=== PATIENT | female | born 1980 | race Caucasian/White ===

== ENCOUNTER 2020-07-26 15:51 | Outpatient (REF) | payer MEDICAID, SELFPAY ==
--- NOTE | ~2020-07-26 | US_ITS ---
EXAMINATION: US PELVIC AND TRANSVAGINAL CLINICAL INFORMATION: Excessive and frequent menses. COMPARISON: None TECHNIQUE: Both transabdominal and endovaginal scans were performed. FINDINGS: Anteverted anteflexed uterus present measuring 9.7 x 4.6 x 5.0 cm. The uterus appears normal. Endometrial thickness is 1.4 cm. The endometrium is slightly heterogeneous with one rounded 3.5 x 9.5 mm area seen. The right ovary measures 3.2 x 2.0 x 1.9 cm for a volume of 6.4 mL which includes a 1.2 x 0.9 x 1.8 cm cyst. The left ovary measures 2.7 x 1.8 x 1.7 cm for a volume of 4.3 mL and contains follicular cysts. A small amount of free fluid is present in the cul-de-sac. US/US pelvic and transvaginal IMPRESSION: 1. Normal-appearing exam aside from the presence of mild heterogeneity in the endometrium with question of a possible polypoid mass. If symptoms persist, hysterosonography may be of value. 2. Bilateral simple appearing ovarian cysts.
== END 2020-07-26 15:52 | disposition home or self-care (01) ==
LOC: HO.US 15:51
PROVIDERS: PCP Nurse Practitioner Primary Care; Visit Provider Advanced Practice Midwife
DX: N92.0 Excessive and frequent menstruation with regular cycle (principal)
CPT/HCPCS: 76830; 76856

== ENCOUNTER 2020-08-30 13:18 | Outpatient (REF) | payer MEDICAID, SELFPAY ==
[2020-08-31 09:20] LABS: CT PCR NOT DETECTED (Not Detect.); NG PCR NOT DETECTED (Not Detect.)
[2020-09-01 22:36] LABS: HPV mRNA E6/E7 rflx Not Detected (Not Detected)
== END 2020-08-30 13:19 | disposition home or self-care (01) ==
LOC: HO.LAB 13:18
PROVIDERS: Visit Provider Obstetrics & Gynecology
DX: Z01.419 Encounter for gynecological examination (general) (routine) without abnormal findings (principal); R93.5 Abnormal findings on diagnostic imaging of other abdominal regions, including retroperitoneum; N84.1 Polyp of cervix uteri; N92.1 Excessive and frequent menstruation with irregular cycle; Z87.891 Personal history of nicotine dependence
CPT/HCPCS: 87491; 87591; 87624; 88142; 99202

== ENCOUNTER 2020-09-09 07:39 | Day surgery (SDC) | payer MEDICAID, SELFPAY ==
[2020-08-31 17:30] LABS: Hematocrit 29.3 % (37-47); Hemoglobin 8.6 g/dl (12.0-16.0); Mean Corpuscular HGB Conc 29.4 g/dl (31.0-35.0); Mean Corpuscular Hemoglobin 20.3 pg (27.0-33.0); Mean Corpuscular Volume 69.1 fL (80-98); Mean Platelet Volume 10.2 fL (9.4-12.3); Platelet Count 352 X10*3/uL (160-400); Red Blood Count 4.24 X10*6/uL (4.20-5.50); Red Cell Distribution Width 15.9 % (11.0-16.0); White Blood Count 6.6 X10*3/uL (4.8-10.8)
[2020-08-31 18:08] LABS: HCG Quantitative < 2 mIU/mL
[2020-08-31 18:43] LABS: Free T4 (Free Thyroxine) 1.11 ng/dL (0.71-1.85)
[2020-09-02 13:57] VITALS: BMI 23.8
--- NOTE | 2020-09-08 08:34 | HO.ANESPROP2 ---
HPI - Anesthesia Eval Consult details Narrative: 39yo F for D&C Hysteroscopy, Poss Polypectomy, Poss Myomectomy PMFSH Active Problems Active Problems: All Active Problems (Updated 08/30/20 @ 13:51 by Cameron Causey MD) Menometrorrhagia (Acute) Endocervical polyp (Acute) Abnormal endometrial ultrasound (Acute) Past Medical History Medical History Thyroid cancer Family History Family History Paternal Aunt Thyroid ca Paternal Aunt Uterine cancer Surgical History Surgical History S/P removal of thyroid nodule Tubal ligation status Social History Social History Alcohol intake: never Patient Tobacco Use Status: Former Tobacco user Meds Allergies Allergy/AdvReac Type Severity Reaction Status Date / Time No Known Allergies Allergy Verified 08/30/20 13:35 Home Medications Medication Instructions Recorded Confirmed Last Taken Type levothyroxine [Euthyrox] 125 mcg PO DAILY 09/02/20 09/02/20 Unknown History Exam Exam Date and Time: September 08, 2020 0834 Height,Weight and Vital Signs: Height 4 ft 11 in Weight 53.524 kg Pertinent Lab Results Pertinent Lab Results: Laboratory Tests 08/31/20 08/31/20 16:55 16:55 WBC 6.6 RBC 4.24 Hgb 8.6 L Hct 29.3 L MCV 69.1 L MCH 20.3 L MCHC 29.4 L RDW 15.9 Plt Count 352 MPV 10.2 Absolute Nucleated RBC 0.000 Nucleated RBC % (auto) 0.0 TSH 0.20 L Free T4 1.11 Beta HCG, Quant < 2 Assessment and Plan Assessment Anesthesia Assessment: Chart Reviewed
[2020-09-09 07:55] LABS: UPreg QC Valid YES; Urine Pregnancy NEGATIVE (NEGATIVE)
[2020-09-09 07:57] VITALS: BP 124/45; PULSE 74; RESP 16; TEMP 36.4; O2SAT 99
[2020-09-09] MEDS: Lactated Ringers 1,000 ML 100 ML IVCONT (08:06)
--- NOTE | 2020-09-09 09:07 | MHC.SHP ---
Pre-Procedural Eval Section A Date of Service: 09/09/20 The patient is an INPATIENT: No Changes since office visit: No Cold of Flu in the past 2 weeks, No New Medical Problems, No Changes in Medication and No Patient answered all questions The History & Physical has been completed within 30 days and I have reviewed it.: Yes Section B Chief Complaint: polyp of cervix uteri Allergies: Allergies Allergy/AdvReac Type Severity Reaction Status Date / Time No Known Allergies Allergy Verified 08/30/20 13:35 Plan Diagnosis/Plan: Unchanged I have reviewed the history and physical and performed a pertinent physical examination on my patient. No changes have occurred unless specified.
--- NOTE | 2020-09-09 09:57 | P.BOP_ITS ---
Brief Operative Note Date of Service: 09/09/20 Pre-op diagnosis: Menometrorrhagia with endometrial polyp by ultrasound Post-op diagnosis: same (Same plus 1.5 to 2 cm endometrial polyp) Procedure: Hysteroscopy D&C, Polypectomy Surgeon: Cameron Causey MD Anesthesia: MAC Was an Protective Officer used for this Procedure?: No Estimated blood loss (mL): 0 Pathology: other (Endometrial Scrapping. Polyp) Condition: stable Disposition: PACU
--- NOTE | 2020-09-09 09:58 | P.OP_ITS ---
Operative Note Operative Note Date of Service: 09/09/20 Narrative: Preop Diagnosis: Menometrorrhagia and Endometrial polyp by US Operation: Diagnostic Hysteroscopy, Dilataion & Curettage and polypectomy Post Op Diagnosis: Same plus 1.5-2 cm Endometrial Polyp QBL: Minimal Anesthesia: MAC Surgeon: Cameron Causey MD Event Services Manager: None Complication: None Pathology: Endometrial Scrapings, Endometrial polyp Complication: None Pathology: Endometrial Scrapings, Endometrial polyp Procedure: The patient was put in the dorsal lithotomy position, scrubbed, and draped in the usual manner. A sterile speculum was inserted in the patient's vagina. The anterior lip of the cervix was grasped with a single tooth tenaculum. The cervix was dilated up to 5 mm, then the scope was inserted in the patient's uterus. Inspection revealed endometrial polyp. The Myosure Reach device was used; it was introduced through the operative channel and polypectomy done with no complications. This was followed by sharp curettings with moderate amount of tissue was retrieved. At the end of the procedure, all instruments were taken out of the patient uterine and vaginal cavity. The single tooth tenaculum was removed and homeostasis was assured using pressure,. The patient tolerated the procedure well and was transferred to the PACU in a stable condition.
[2020-09-09 10:00] VITALS: BP 123/62; PULSE 60; RESP 16; TEMP 36.3; O2SAT 100
[2020-09-09 10:05] VITALS: BP 117/60; PULSE 57; RESP 16; O2SAT 100
[2020-09-09 10:10] VITALS: BP 109/57; PULSE 59; RESP 18; O2SAT 98
[2020-09-09 10:15] VITALS: BP 108/55; PULSE 85; RESP 18; O2SAT 99
[2020-09-09 10:30] VITALS: BP 112/56; PULSE 56; RESP 18; TEMP 36.6; O2SAT 100
== END 2020-09-09 11:02 ==
LOC: HO.SSS 07:39
PROVIDERS: PCP Nurse Practitioner Primary Care; Visit Provider Obstetrics & Gynecology
PROC: 0UDB8ZZ Extraction of Endometrium, Via Natural or Artificial Opening Endoscopic (ICD-10-PCS; CPT 58558; principal; 2020-09-09 09:00)
DX: N84.0 Polyp of corpus uteri (principal); N92.1 Excessive and frequent menstruation with irregular cycle; Z98.51 Tubal ligation status; Z85.850 Personal history of malignant neoplasm of thyroid; Z87.891 Personal history of nicotine dependence
CPT/HCPCS: 58558; 36415; 81025; 84439; 84443; 84702; 85027; 88305; 88342; J1100; J1885; J2250; J2405; J3010

== ENCOUNTER 2020-10-11 08:11 | Outpatient (REF) | payer MEDICAID, SELFPAY ==
[2020-10-14 19:16] LABS: HPV mRNA E6/E7 rflx Not Detected (Not Detected)
== END 2020-10-11 08:12 | disposition home or self-care (01) ==
LOC: CF 08:11
PROVIDERS: PCP Nurse Practitioner Primary Care; Visit Provider Obstetrics & Gynecology
DX: R87.615 Unsatisfactory cytologic smear of cervix (principal); N92.1 Excessive and frequent menstruation with irregular cycle; R94.6 Abnormal results of thyroid function studies; Z11.51 Encounter for screening for human papillomavirus (HPV)
CPT/HCPCS: 87624; 88142; 99212

== ENCOUNTER 2020-10-26 15:47 | Outpatient (REF) | payer MEDICAID, SELFPAY ==
--- NOTE | ~2020-10-26 | MM_ITS ---
EXAMINATION: MM SCREENING DIGITAL BREAST TOMOSYNTHESIS, BILATERAL CLINICAL INFORMATION: Screening. Asymptomatic. Prior [id number] mammography currently unavailable. Age 39. Family history breast cancer, paternal aunt. The lifetime risk of breast cancer based on the Tyrer-Cuzick Model is 11%. COMPARISON: None. TECHNIQUE: Digital breast tomosynthesis is performed in both the craniocaudal and mediolateral oblique views along with computer-aided detection (CAD). Synthesized 2D images are generated from the tomosynthesis. FINDINGS: The breasts are heterogeneously dense, which may obscure small masses (ACR BI-RADS breast composition Category c). There are no significant masses, abnormal calcifications, or other abnormalities. There is small intramammary node posterior upper outer right breast. The axilla and skin contours are unremarkable. MM/MM tomosynthesis screening BI IMPRESSION: No mammographic evidence of malignancy. ASSESSMENT: BI-RADS 1: Negative RECOMMENDATION: 1. Routine annual mammography screening. 2. Radiology department staff will attempt to retrieve prior [id number] mammography to allow for comparison in an addendum report. This patient's information was entered into a reminder system with a target due date for their next mammogram.
== END 2020-10-26 15:48 | disposition home or self-care (01) ==
LOC: HO.MAMMO 15:47
PROVIDERS: Visit Provider Obstetrics & Gynecology
DX: Z12.31 Encounter for screening mammogram for malignant neoplasm of breast (principal)
CPT/HCPCS: 77063; 77067

== ENCOUNTER → 2020-11-23 14:16 | Outpatient (BNVA) | payer MEDICAID, SELFPAY | PROVIDERS: PCP Nurse Practitioner Primary Care; Visit Provider Obstetrics & Gynecology | DX: Z30.433 Encounter for removal and reinsertion of intrauterine contraceptive device (principal) | CPT/HCPCS: 58300 ==

== ENCOUNTER → 2020-12-21 15:55 | Outpatient (BNVA) | payer MEDICAID, SELFPAY | PROVIDERS: PCP Nurse Practitioner Primary Care; Visit Provider Obstetrics & Gynecology | DX: Z30.432 Encounter for removal of intrauterine contraceptive device (principal); D64.9 Anemia, unspecified; N92.1 Excessive and frequent menstruation with irregular cycle | CPT/HCPCS: 58301; 81025; 99212 ==

== ENCOUNTER 2021-08-31 14:10 | Outpatient (REF) | payer MEDICAID, SELFPAY ==
[2021-09-04 21:12] LABS: HPV mRNA E6/E7 rflx Not Detected (Not Detected)
== END 2021-08-31 14:11 | disposition home or self-care (01) ==
LOC: HO.LAB 14:10
PROVIDERS: Visit Provider Obstetrics & Gynecology
DX: Z01.419 Encounter for gynecological examination (general) (routine) without abnormal findings (principal)
CPT/HCPCS: 87624; 88142

== ENCOUNTER 2021-09-18 06:38 | Outpatient (REF) | payer MEDICAID, SELFPAY ==
[2021-09-18 08:06] LABS: COVID-19 Test Positive (Negative); IDNOW Serial# 16C4AD1C
== END 2021-09-18 06:39 | disposition home or self-care (01) ==
LOC: HO.LAB 06:38
PROVIDERS: Visit Provider Internal Medicine
DX: Z20.822 Contact with and (suspected) exposure to COVID-19 (principal)
CPT/HCPCS: 87635; C9803

== ENCOUNTER 2021-10-27 15:56 | Outpatient (REF) | payer MEDICAID, SELFPAY ==
--- NOTE | ~2021-10-27 | MM_ITS ---
EXAMINATION: MM SCREENING DIGITAL BREAST TOMOSYNTHESIS, BILATERAL CLINICAL INFORMATION: Screening. Asymptomatic. The lifetime risk of breast cancer based on the Tyrer-Cuzick Model is 11%. COMPARISON: Mammography: 10/26/2020; outside exam 02/15/2016 ([facility], [place], [place]). TECHNIQUE: Digital breast tomosynthesis is performed in both the craniocaudal and mediolateral oblique views along with computer-aided detection (CAD). Synthesized 2D images are generated from the tomosynthesis. FINDINGS: The breasts are heterogeneously dense, which may obscure small masses (ACR BI-RADS breast composition Category c). There are no significant masses, abnormal calcifications, or other abnormalities. Parenchymal pattern is similar to prior studies. There is no developing density or architectural abnormality. The axilla and skin contours are unremarkable. No significant changes. MM/MM tomosynthesis screening BI IMPRESSION: No mammographic evidence of malignancy. ASSESSMENT: BI-RADS 1: Negative RECOMMENDATION: Routine annual mammography screening. This patient's information was entered into a reminder system with a target due date for their next mammogram.
== END 2021-10-27 15:57 | disposition home or self-care (01) ==
LOC: HO.MAMMO 15:56
PROVIDERS: Visit Provider Obstetrics & Gynecology
DX: Z12.31 Encounter for screening mammogram for malignant neoplasm of breast (principal)
CPT/HCPCS: 77063; 77067

== ENCOUNTER 2022-09-04 14:28 | Outpatient (AMB) | payer MEDICAID, SELFPAY ==
[2022-09-04 14:29] VITALS: BP 116/68; BMI 25.9
--- NOTE | 2022-09-04 14:29 | MHC.OFFVIS ---
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 No complaints. Last Pap/HPV was negative in 09/08, this was preceded by ascus/HPV negative in 09/07 Last Mammogram was BI-RADS 1 in 11/09 [facility] Medical History Thyroid cancer Surgical History S/P removal of thyroid nodule Tubal ligation status Family History Paternal Aunt Thyroid ca Paternal Aunt Uterine cancer Paternal Aunt Breast cancer Social History Household Members: Spouse and Children Housing: House Are you a primary intensive care nurse to a significant other at home: No Do you presently have visiting nurse or other home services: No Alcohol intake: never Patient Tobacco Use Status: Former Tobacco user service: No Current occupational status: employed Female Reproductive History Menstrual Age of Menarche: 10 Date of last menstrual period: 08/17/22 Total pregnancies: 2 Number of Living Children: 2 Date of last pap smear: 08/31/21 (wnl) History of abnormal pap smear: Yes (2020 ASCUS) Review of Systems Const All systems reviewed & are unremarkable except as noted in HPI and below Card Reports as per HPI Resp Reports as per HPI GI Reports as per HPI and Reports no additional complaints Reports as per HPI Physical Exam Vital Signs: Last Vital Signs BP 116/68 09/04/22 14:29 BMI result Body Mass Index 25.9 Const General: cooperative, healthy appearing and comfortable Chest Chest palpation & inspection: normal inspection of the chest and normal palpation of entire chest wall Breast/axilla inspection: normal inspection of the breasts and normal inspection of the axillae Breast/axilla palpation: normal palpation of the breasts, normal palpation of the axillae and no axillary lymphadenopathy Resp Effort & Inspection: normal respiratory effort Auscultation: clear to auscultation bilaterally Percussion: percussion normal Cardio Palpation: normal PMI Rate: regular rate Rhythm: regular rhythm Heart sounds: no murmurs and no rubs Peripheral pulses: Peripheral pulses 2+ throughout GI Inspection: Yes normal to inspection Palpation (GI): Soft to palpation, nontender, no guarding, not rigid and No hepatosplenomegaly present Percussion: Yes normal to percussion Auscultation: normal bowel sounds Rectal Exam - Female: deferred General: Yes bladder normal to palpation External Female Exam: No lesion Speculum Exam - Vagina: normal appearance of the vagina, normal palpation, normal vaginal discharge and not erythematous Speculum Exam - Cervix: normal appearance of the cervix and normal palpation Bimanual exam- vagina & uterus: normal bimanual exam, normal palpation, uterine size normal, bladder normal to palpation, consistency normal and normal palpation Bimanual Exam- Adnexa, other: normal adnexae, no masses and no tenderness Assessment & Plan Assessment & Plan (1) Well woman exam: Comment: ASCUS HPV negative in 10/08 Negative co testing in 09/08 Code(s): Z01.419 - Encounter for gynecological examination (general) (routine) without abnormal findings Plan: Cotesting not indicated this year, instructions given the patient to schedule her next screening Mammogram in 11/10. Counseled the patient about the recommended dietary allowance of 1000 mg of Calcium & 600 IU of vitamin D. The patient was instructed to perform monthly self-breast exams and to schedule an annual exam in a year; All questions answered and the patient verbalized understanding. Instructed the patient to schedule annual exam in a year Orders: Orders MM screening mammo BI Today Z12.31 - Encounter for screening mammogram for malignant neoplasm of breast Coding Level of Care Code Est Pt Prev Care 40-64y(38026) Diagnoses Well woman exam Z01.419
== END 2022-09-04 15:03 | disposition home or self-care (01) ==
LOC: HO.HWS 14:28
PROVIDERS: PCP Nurse Practitioner Primary Care; Visit Provider Obstetrics & Gynecology
DX: Z01.419 Encounter for gynecological examination (general) (routine) without abnormal findings (principal)
CPT/HCPCS: 99396

== ENCOUNTER → 2022-09-04 14:28 | Outpatient (BNVA) | payer MEDICAID, SELFPAY | PROVIDERS: PCP Nurse Practitioner Primary Care; Visit Provider Obstetrics & Gynecology ==

== ENCOUNTER 2022-11-05 15:52 | Outpatient (REF) | payer OTHER, SELFPAY | END 2022-11-05 15:53 | disposition home or self-care (01) | LOC: HO.MAMMO 15:52 | PROVIDERS: Visit Provider Nurse Practitioner Primary Care | DX: Z12.31 Encounter for screening mammogram for malignant neoplasm of breast (principal) | CPT/HCPCS: 77063; 77067 ==

== ENCOUNTER → 2022-11-05 16:00 | Outpatient (BNV) | payer OTHER, SELFPAY | PROVIDERS: Visit Provider Radiology Diagnostic Radiology | DX: Z12.31 Encounter for screening mammogram for malignant neoplasm of breast (principal) | CPT/HCPCS: 77063; 77067 ==

== ENCOUNTER 2023-09-17 08:38 | Outpatient (AMB) | payer OTHER, SELFPAY ==
--- NOTE | 2023-09-17 08:39 | A.OFFVIS_ITS ---
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 Complaining of heavy menstrual cycles associated with passage of blood clots and pelvic cramping Last Pap/HPV was negative in 09/08, this was preceded by ascus/HPV negative in 10/08 Last Mammogram was BI-RADS 1 in 11/10 [facility] Medical History ASCUS of cervix with negative high risk HPV Thyroid cancer Surgical History Tubal ligation status S/P removal of thyroid nodule Family History Paternal Aunt Thyroid ca Paternal Aunt Uterine cancer Paternal Aunt Breast cancer Social History Household Members: Spouse and Children Housing: House Are you a primary resident care manager rn to a significant other at home: No Do you presently have visiting nurse or other home services: No Alcohol intake: never Patient Tobacco Use Status: Former Tobacco user service: No Current occupational status: employed Current occupation: [employer] Sexual orientation: Straight/Heterosexual Gender identity: Female Female Reproductive History Menstrual Age of Menarche: 10 Date of last menstrual period: 08/21/23 control method: permanent sterilization Total pregnancies: 2 Full term: 2 Number of Living Children: 2 Date of last pap smear: 09/01/21 Date of Mammogram: 11/05/22 Review of Systems Const All systems reviewed & are unremarkable except as noted in HPI and below Card Reports as per HPI Resp Reports as per HPI GI Reports as per HPI and Reports no additional complaints Reports as per HPI Physical Exam Vital Signs: BMI result Body Mass Index 25.4 Const General: cooperative, healthy appearing and comfortable Chest Chest palpation & inspection: normal inspection of the chest and normal palpation of entire chest wall Breast/axilla inspection: normal inspection of the breasts and normal inspection of the axillae Breast/axilla palpation: normal palpation of the breasts, normal palpation of the axillae and no axillary lymphadenopathy Resp Effort & Inspection: normal respiratory effort Auscultation: clear to auscultation bilaterally Percussion: percussion normal Cardio Palpation: normal PMI Rate: regular rate Rhythm: regular rhythm Heart sounds: no murmurs and no rubs Peripheral pulses: Peripheral pulses 2+ throughout GI Inspection: Yes normal to inspection Palpation (GI): Soft to palpation, nontender, no guarding, not rigid and No hepatosplenomegaly present Percussion: Yes normal to percussion Auscultation: normal bowel sounds Rectal Exam - Female: deferred General: Yes bladder normal to palpation External Female Exam: No lesion Speculum Exam - Vagina: normal appearance of the vagina, normal palpation, normal vaginal discharge and not erythematous Speculum Exam - Cervix: normal appearance of the cervix and normal palpation Bimanual exam- vagina & uterus: normal bimanual exam, normal palpation, uterine size normal, bladder normal to palpation, consistency normal and normal palpation Bimanual Exam- Adnexa, other: normal adnexae, no masses and no tenderness Assessment & Plan Assessment & Plan (1) Well woman exam: Comment: ASCUS HPV negative in 10/08 Negative co testing in 09/08 Code(s): Z01.419 - Encounter for gynecological examination (general) (routine) without abnormal findings Category: Medical Plan: Cotesting done. Instructions given the patient to schedule next screening Mammogram in 11/11. Counseled the patient about the recommended dietary allowance of 1000 mg of Calcium & 600 IU of vitamin D. The patient was instructed to perform monthly self-breast exams and to schedule an annual exam in a year; All questions answered and the patient verbalized understanding. Instructed the patient to schedule annual exam in a year (2) Abnormal uterine bleeding (AUB): Code(s): N93.9 - Abnormal uterine and vaginal bleeding, unspecified Category: Medical Plan: Co testing done, GC and chlamydia taken CBC, TSH, prolactin, HCG, and pelvic ultrasound ordered. Discussed with the patient the different causes of abnormal bleeding including thyroid disorders, uterine and ovarian pathology, endometrial hyperplasia, carcinoma and other potential causes. Discussed with the patient the work up including CBC (to r/o anemia), TSH, prolactin, pelvic Ultrasound, endometrial biopsy to r/o endometrial pathology. All questions answered and the patient verbalized understanding. Instructed the patient to schedule an appointment for an endometrial biopsy in 2 weeks. Orders: Orders Complete Blood Count no Diff Today N93.9 - Abnormal uterine and vaginal bleeding, unspecified TSH reflex Free T4 Today N93.9 - Abnormal uterine and vaginal bleeding, unspecified Prolactin Today N93.9 - Abnormal uterine and vaginal bleeding, unspecified US pelvic and transvaginal Today N93.9 - Abnormal uterine and vaginal bleeding, unspecified HCG Quantitative Today N93.9 - Abnormal uterine and vaginal bleeding, unspecified Coding Level of Care Code Est Pt Prev Care 40-64y(58564) Diagnoses Well woman exam Z01.419 Abnormal uterine bleeding (AUB) N93.9
[2023-09-17 08:42] VITALS: BP 106/60; BMI 25.4
== END 2023-09-17 08:58 | disposition home or self-care (01) ==
LOC: HO.HWS 08:38
PROVIDERS: PCP Internal Medicine; Visit Provider Obstetrics & Gynecology
DX: Z01.419 Encounter for gynecological examination (general) (routine) without abnormal findings (principal); N93.9 Abnormal uterine and vaginal bleeding, unspecified
CPT/HCPCS: 99396

== ENCOUNTER 2023-09-17 08:38 | Outpatient (REF) | payer OTHER, SELFPAY ==
[2023-09-17 09:59] LABS: Hematocrit 36.4 % (37.0-47.0); Mean Corpuscular Hemoglobin 26.2 pg (27.0-33.0); Mean Corpuscular Volume 79.5 fL (80.0-98.0); Mean Platelet Volume 10.2 fL (9.4-12.3); Platelet Count 333 X10*3/uL (160-400); Red Blood Count 4.58 X10*6/uL (4.20-5.50); Red Cell Distribution Width 13.2 % (11.0-16.0); White Blood Count 6.7 X10*3/uL (4.8-10.8)
[2023-09-17 10:57] LABS: HCG Quantitative < 2 mIU/mL; TSH reflex Free T4 0.24 uIU/mL (0.32-4.0)
[2023-09-17 17:13] LABS: CT PCR NOT DETECTED (Not Detect.); NG PCR NOT DETECTED (Not Detect.)
[2023-09-18 08:13] LABS: Prolactin 23.2 ng/mL
[2023-09-20 15:33] LABS: HPV mRNA E6/E7 Not Detected (Not Detected)
== END 2023-09-17 08:39 | disposition home or self-care (01) ==
LOC: HO.LAB 08:38
PROVIDERS: PCP Internal Medicine; Visit Provider Obstetrics & Gynecology
DX: Z01.419 Encounter for gynecological examination (general) (routine) without abnormal findings (principal); Z11.51 Encounter for screening for human papillomavirus (HPV); N93.9 Abnormal uterine and vaginal bleeding, unspecified; Z85.850 Personal history of malignant neoplasm of thyroid
CPT/HCPCS: 36415; 84146; 84439; 84443; 84702; 85027; 87491; 87591; 87624; 88175

== ENCOUNTER 2023-09-17 09:00 | Outpatient (REF) | payer OTHER, SELFPAY | END 2023-09-17 09:01 | disposition home or self-care (01) | LOC: HO.LNP 09:00 | PROVIDERS: Visit Provider Obstetrics & Gynecology | DX: Z13.89 Encounter for screening for other disorder (principal) ==

== ENCOUNTER 2023-09-20 16:06 | Outpatient (REF) | payer OTHER, SELFPAY ==
--- NOTE | ~2023-09-20 | US_ITS ---
EXAMINATION: US PELVIS CLINICAL INFORMATION: Abnormal uterine and vaginal bleeding, last menstrual period 09/17/2023, no pain. COMPARISON: July 26, 2020 TECHNIQUE: Ultrasound of the pelvis is performed using both transabdominal and transvaginal transducers along with Doppler. Transvaginal imaging is performed due to inadequate visualization transabdominally. FINDINGS: The uterus is anteverted and measures 10.5 x 3.9 x 5.3 cm. 2.7 x 1.9 x 2.0 cm heterogeneous lesion with echogenic foci characteristic of calcifications characteristic of a fibroid located towards the lower uterine segment was not appreciated on the prior exam. Double wall endometrial thickness is 6 mm. No significant free fluid. A 0.3 cm echogenic focus within the endometrium may possibly represent an endometrial polyp. Right ovary measures 2.7 x 1.0 x 1.3 cm, volume 1.4 mL. Echogenic foci within the right ovary are characteristic of small calcifications. Right adnexal tubular structure may represent a hydrosalpinx. Left ovary seen only on transabdominal ultrasound images, limiting evaluation, and measures 3.8 x 1.8 x 2.8 cm, volume 10.0 mL. Echogenic foci within the left ovary are characteristic of small calcifications. Left ovarian 2.1 cm cyst is difficult to fully characterize due to the limited visualization. Nabothian cysts. US/US pelvic and transvaginal IMPRESSION: 1. A 2.7 cm heterogeneous lesion with echogenic foci characteristic of calcifications characteristic of a fibroid located towards the lower uterine segment was not appreciated on the prior exam. 2. A 0.3 cm echogenic focus within the endometrium may possibly represent an endometrial polyp. 3. Right adnexal anechoic tubular structure may represent a hydrosalpinx. 4. Left ovarian 2.1 cm cyst is difficult to fully characterize due to the limited visualization. Management of Adnexal Lesions (newly detected incidentally on US in asymptomatic* non females) Cyst Size Reproductive Age Female * < 3 cm: No follow-up. Normal physiology. At your discretion, may not need to be described in the report. * > 3 to 5 cm: No follow-up. Describe in report and include ?almost certainly benign?. * > 5 to 7 cm: Yearly follow-up. Describe in report and include ?almost certainly benign?. * > 7 cm: Further evaluation with MR or surgery should be considered since these may be difficult to assess completely with US. Cyst Size Postmenopausal Female * < 1 cm: No follow-up. Clinically inconsequential. At your discretion, may not need to be described in the report. * > 1 to 7 cm: Describe and include ?almost certainly benign? and recommend yearly follow-up, * at least initially, with US. * > 7 cm: Further imaging with MR or surgery. Length of follow-up: No consensus was reached regarding how long a lesion must be followed to demonstrate its stability. Cystic ovarian neoplasms generally grow very slowly. These recommendations may be helpful in symptomatic women as well, but the clinical setting will often determine management in a manner beyond the scope of these recommendations. Reference: Becca et. al. Management of Asymptomatic Ovarian and Other Adnexal Cysts Imaged at US, Society of Radiologists in Ultrasound Consensus Statement, Ultrasound Quarterly 2010;26:121-131.
== END 2023-09-20 16:07 | disposition home or self-care (01) ==
LOC: HO.US 16:06
PROVIDERS: PCP Internal Medicine; Visit Provider Obstetrics & Gynecology
DX: N93.9 Abnormal uterine and vaginal bleeding, unspecified (principal)
CPT/HCPCS: 76830; 76856

== ENCOUNTER 2023-10-02 08:28 | Outpatient (AMB) | payer OTHER, SELFPAY ==
--- NOTE | 2023-10-02 08:34 | A.OFFVIS_ITS ---
Vital Signs 10/02/23 08:35 Height 4 ft 11 in Weight 125 lb 10.616 oz BMI 25.4 BP 108/62 Intake Visit Reasons: pre op Sustainability Director Required: Yes Sustainability Director Language: Cyber Engineer Services: Sustainability Director Present (in person) Sustainability Director Name: Dayana SANTIAGO Information Interpreted: non-clinical & clinical Hydraulic Assembler: Hydraulic Assembler Present Accompanied by: Self / Same As Patient Allergies No Known Allergies Allergy (Verified 09/17/23 08:43) Is last menstrual period known: Yes Last menstrual period: 12/17/19 Post menopausal: No Patient : No Do you need a note to return to daycare/school/sports/work: Yes (for surgery on saturday) HPI Comments Details: Presenting for pelvic ultrasound follow-up. Pelvic ultrasound done recently showed the following: The uterus is anteverted and measures 10.5 x 3.9 x 5.3 cm. 2.7 x 1.9 x 2.0 cm heterogeneous lesion with echogenic foci characteristic of calcifications characteristic of a fibroid located towards the lower uterine segment was not appreciated on the prior exam. Double wall endometrial thickness is 6 mm. No significant free fluid. A 0.3 cm echogenic focus within the endometrium may possibly represent an endometrial polyp. Right ovary measures 2.7 x 1.0 x 1.3 cm, volume 1.4 mL. Echogenic foci within the right ovary are characteristic of small calcifications. Right adnexal tubular structure may represent a hydrosalpinx. Left ovary seen only on transabdominal ultrasound images, limiting evaluation, and measures 3.8 x 1.8 x 2.8 cm, volume 10.0 mL. Echogenic foci within the left ovary are characteristic of small calcifications. Left ovarian 2.1 cm cyst is difficult to fully characterize due to the limited visualization. Nabothian cysts. [facility] Medical History ASCUS of cervix with negative high risk HPV Thyroid cancer Surgical History Tubal ligation status S/P removal of thyroid nodule Family History Paternal Aunt Thyroid ca Paternal Aunt Uterine cancer Paternal Aunt Breast cancer Social History Household Members: Spouse and Children Housing: House Are you a primary care program director to a significant other at home: No Do you presently have visiting nurse or other home services: No Alcohol intake: never Patient Tobacco Use Status: Former Tobacco user service: No Current occupational status: employed Current occupation: [employer] Sexual orientation: Straight/Heterosexual Gender identity: Female Female Reproductive History Menstrual Age of Menarche: 10 Date of last menstrual period: 12/17/19 Total pregnancies: 2 Full term: 2 Review of Systems Card Reports as per HPI and Reports no additional complaints Resp Reports as per HPI and Reports no additional complaints GI Reports as per HPI and Reports no additional complaints Reports as per HPI Physical Exam Vital Signs: BMI result Body Mass Index 25.4 Const General: cooperative, healthy appearing and comfortable Resp Effort & Inspection: normal respiratory effort Auscultation: clear to auscultation bilaterally Percussion: percussion normal Cardio Palpation: normal PMI Rate: regular rate Rhythm: regular rhythm Heart sounds: no murmurs and no rubs Peripheral pulses: Peripheral pulses 2+ throughout GI Inspection: Yes normal to inspection Palpation (GI): Soft to palpation, nontender, no guarding, not rigid and No hepatosplenomegaly present Percussion: Yes normal to percussion Auscultation: normal bowel sounds Rectal Exam - Female: deferred Assessment & Plan Assessment & Plan (1) Ovarian cyst: Comment: Suboptimally visualized by ultrasound and bilateral ovarian calcification Code(s): N83.209 - Unspecified ovarian cyst, unspecified side Category: Medical Plan: Discussed with the patient the finding on ultrasound showing bilateral ovarian calcification and suboptimal villi ovarian cyst, recommended MRI for further assessment (2) Uterine myoma: Code(s): D25.9 - Leiomyoma of uterus, unspecified Category: Medical Plan: Discussed with the patient the results of ultrasound showing calcification of the uterine myoma in the lower uterine segment will request MRI of the pelvis for further evaluation of the myoma in order to rule out any suspicious features (3) Abnormal endometrial ultrasound: Code(s): R93.5 - Abnormal findings on diagnostic imaging of other abdominal regions, including retroperitoneum Category: Medical Plan: Discussed with the patient the results of the ultrasound showing 0.3 cm possible endometrial polyp. Recommended hysteroscopy D&C possible polypectomy/myomectomy. Discussed with the patient the procedure , all benefits and risks including but not limited to inability to complete the procedure , insufficient endometrial tissue for a complete evaluation of the endometrial c avity , bleeding, infection, possible need for blood transfusion with all its risk ( HIV,syphilis, Hepatitis, anaphylaxis shock, others..), injury to bladder, rectum, possible need for laparoscopy/laparotomy or hysterectomy. The patient verbalized understanding and signed the consent. 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 Instructions given the patient to schedule the MRI and a follow-up appointment. All questions answered, the patient verbalized understanding Orders: Orders MR pelvis wo/w con Today D25.9 - Leiomyoma of uterus, unspecified, N70.11 - Chronic salpingitis, N83.209 - Unspecified ovarian cyst, unspecified side Coding Level of Care Code Est Pt Level 3 (62466) Diagnoses Ovarian cyst N83.209 Uterine myoma D25.9 Abnormal endometrial ultrasound R93.5 Hydrosalpinx N70.11
[2023-10-02 08:35] VITALS: BP 108/62; BMI 25.4
== END 2023-10-02 10:11 | disposition home or self-care (01) ==
PROVIDERS: PCP Internal Medicine; Visit Provider Obstetrics & Gynecology
DX: N83.209 Unspecified ovarian cyst, unspecified side (principal); D25.9 Leiomyoma of uterus, unspecified; R93.5 Abnormal findings on diagnostic imaging of other abdominal regions, including retroperitoneum; N70.11 Chronic salpingitis
CPT/HCPCS: 99213

== ENCOUNTER → 2023-10-02 08:28 | Outpatient (BNVA) | payer OTHER, SELFPAY | PROVIDERS: PCP Internal Medicine; Visit Provider Obstetrics & Gynecology ==

== ENCOUNTER 2023-10-04 07:23 | Day surgery (SDC) | payer OTHER, SELFPAY ==
--- NOTE | 2023-10-03 08:37 | P.CONAN_ITS ---
Documented by User: Deanna Ashby NP 10/03/23 08:37 HPI - Anesthesia Eval Consult details Narrative: 42yo F for D&C Hysteroscopy,possible myomectomy,possible polypectomy, PMFSH Active Problems Active Problems: All Active Problems Hydrosalpinx (Acute) Uterine myoma (Acute) Ovarian cyst (Acute) Abnormal uterine bleeding (AUB) (Acute) Microcytic anemia (Acute) Well woman exam (Acute) Anemia (Acute) Encounter for IUD removal (Acute) Remove/insert IUD (Acute) Unsatisfactory cervical Papanicolaou smear (Acute) Abnormal TSH (Acute) Menometrorrhagia (Acute) Endocervical polyp (Acute) Abnormal endometrial ultrasound (Acute) Past Medical History Medical History ASCUS of cervix with negative high risk HPV Thyroid cancer Family History Family History Paternal Aunt Thyroid ca Paternal Aunt Uterine cancer Paternal Aunt Breast cancer Surgical History Surgical History Tubal ligation status S/P removal of thyroid nodule Social History Social History Household Members: Spouse and Children Housing: House Are you a primary healthcare administration intern to a significant other at home: No Do you presently have visiting nurse or other home services: No Alcohol intake: never Patient Tobacco Use Status: Former Tobacco user service: No Current occupational status: employed Current occupation: [employer] Sexual orientation: Straight/Heterosexual Gender identity: Female Meds Allergies Allergy/AdvReac Type Severity Reaction Status Date / Time naproxen AdvReac Palpitation Verified 10/04/23 09:08 s Home Medications ?Medication ?Instructions ?Recorded ?Confirmed ?Last Taken ?Type levothyroxine 125 mcg tablet 125 mcg PO DAILY 09/02/20 07/03/22 Unknown History (Euthyrox) cholecalciferol (vitamin D3) 125 125 mcg PO DAILY 07/03/22 07/03/22 Unknown History mcg (5,000 unit) tablet (Vitamin D3) magnesium 100 mg capsule 100 mg PO DAILY 07/03/22 07/03/22 Unknown History omega-3 fatty acids 1,000 mg PO DAILY 07/03/22 07/03/22 Unknown History Assessment and Plan Assessment Anesthesia Assessment: Chart Reviewed Documented by User: Jana Fleming MD 10/04/23 09:21 [facility] Past Medical History Medical History ASCUS of cervix with negative high risk HPV Thyroid cancer Family History Family History Paternal Aunt Thyroid ca Paternal Aunt Uterine cancer Paternal Aunt Breast cancer Surgical History Surgical History Tubal ligation status S/P removal of thyroid nodule History of Problems with Anesthesia: No Social History Social History Household Members: Spouse and Children Housing: House Are you a primary healthcare administration intern to a significant other at home: No Do you presently have visiting nurse or other home services: No Alcohol intake: never Patient Tobacco Use Status: Former Tobacco user service: No Current occupational status: employed Current occupation: [employer] Sexual orientation: Straight/Heterosexual Gender identity: Female Meds Allergies Allergy/AdvReac Type Severity Reaction Status Date / Time naproxen AdvReac Palpitation Verified 10/04/23 09:08 s Home Medications ?Medication ?Instructions ?Recorded ?Confirmed ?Last Taken ?Type levothyroxine 125 mcg tablet 125 mcg PO DAILY 09/02/20 07/03/22 Unknown History (Euthyrox) cholecalciferol (vitamin D3) 125 125 mcg PO DAILY 07/03/22 07/03/22 Unknown History mcg (5,000 unit) tablet (Vitamin D3) magnesium 100 mg capsule 100 mg PO DAILY 07/03/22 07/03/22 Unknown History omega-3 fatty acids 1,000 mg PO DAILY 07/03/22 07/03/22 Unknown History Exam Airway Mallampati Class: II TM Dist: >3cm Neck ROM: Full Loose/Missing/Broken Teeth: No Heart: RRR Lungs: CTA Assessment and Plan Assessment Anesthesia Assessment: Anesthesia Plan Discussed Final Anesthetic Review History of Problems with Anesthesia: No NPO: Yes ASA Class: II Final Preanesthetic Review: Meds/Allgs Chart Reviewed, Consent Obtained/Reviewed and Anes Risks/Benef Reviewed Patient Risk: Low Procedure Risk: Low Anesthetic Plan Anesthetic Plan: GA Disposition: Standard PACU
[2023-10-04 08:15] LABS: UPreg QC Valid YES; Urine Pregnancy NEGATIVE (NEGATIVE)
--- NOTE | 2023-10-04 08:49 | MHC.SHP ---
Pre-Procedural Eval Section A - 24 Hr Update-Section A only Date of Service: 10/04/23 Section B - Complete if H&P > 30 days Chief Complaint: Unspecified ovarian cyst, unspecified side Allergies: Allergies Allergy/AdvReac Type Severity Reaction Status Date / Time No Known Allergies Allergy Verified 09/17/23 08:43 Plan I have reviewed the history and physical and performed a pertinent physical examination on my patient. No changes have occurred unless specified. Time Spent With Patient Time: Total time managing care of this patient today ____ minutes.
[2023-10-04 08:50] VITALS: BMI 25.2
[2023-10-04 09:05] VITALS: BP 111/57; PULSE 62; RESP 16; TEMP 36.2; O2SAT 98
[2023-10-04] MEDS: Lactated Ringers 1,000 ML 100 ML IVCONT (09:18)
[2023-10-04 09:19] VITALS: BMI 25.2
--- NOTE | 2023-10-04 10:52 | P.OP_ITS ---
Operative Note Operative Note Date of Service: 10/04/23 Narrative: Preop Diagnosis: Abnormal uterine bleeding, abnormal endometrial by ultrasound Operation: Diagnostic Hysteroscopy, Dilataion & Curettage and polypectomy Post Op Diagnosis: Endometrial Polyp QBL: Minimal Anesthesia: GLMA Surgeon: Cameron Causey MD Fire Protection Inspector: None Complication: None Pathology: Endometrial Scrapings, Endometrial polyp Procedure: The patient was put in the dorsal lithotomy position, scrubbed, and draped in the usual manner. A sterile speculum was inserted in the patient's vagina. The anterior lip of the cervix was grasped with a single tooth tenaculum. The cervix was dilated up to 5 mm, then the scope was inserted in the patient's uterus. Inspection revealed endometrial polyp. The Myosure Reach device was used; it was introduced through the operative channel and polypectomy done with no complications. The scope was then taken out from the uterine cavity, sharp curettings was carried on with minimal to moderate amount of tissues retrieved. At the end of the procedure, all instruments were taken out of the patient uterine and vaginal cavity. The single tooth tenaculum was removed and homeostasis was assured using pressure,. The patient tolerated the procedure well and was transferred to the PACU in a stable condition.
--- NOTE | 2023-10-04 10:52 | PM.OP ---
Brief Operative Note Date of Service: 10/04/23 Pre-op diagnosis: Abnormal uterine bleeding, abnormal endometrium by ultrasound Post-op diagnosis: same (Endometrial polyp) Procedure: Hysteroscopy D&C, Polypectomy Surgeon: Cameron Causey MD Anesthesia: GLMA Was an Associate Product Integrity Engineer used for this Procedure?: No Estimated blood loss (mL): 0 Pathology: other (Endometrial Scrapping. Polyp) Condition: stable Disposition: PACU
[2023-10-04 10:55] VITALS: BP 112/70; PULSE 64; RESP 20; TEMP 36.1; O2SAT 100
[2023-10-04 11:00] VITALS: BP 114/66; PULSE 58; RESP 16; O2SAT 100
[2023-10-04 11:05] VITALS: BP 118/68; PULSE 56; RESP 16; O2SAT 100
[2023-10-04 11:10] VITALS: BP 117/64; PULSE 59; RESP 16; O2SAT 99
[2023-10-04 11:25] VITALS: BP 123/60; PULSE 63; RESP 18; TEMP 36.1; O2SAT 100
== END 2023-10-04 12:05 | disposition home or self-care (01) ==
PROVIDERS: PCP Internal Medicine; Visit Provider Obstetrics & Gynecology
PROC: 0UDB8ZZ Extraction of Endometrium, Via Natural or Artificial Opening Endoscopic (ICD-10-PCS; CPT 58558; principal; 2023-10-04 10:30)
DX: N93.9 Abnormal uterine and vaginal bleeding, unspecified (principal); R93.5 Abnormal findings on diagnostic imaging of other abdominal regions, including retroperitoneum; N84.0 Polyp of corpus uteri
CPT/HCPCS: 58558; 81025; 88305; J1100; J1885; J2250; J2405; J2704; J3010

== ENCOUNTER → 2023-10-04 07:23 | Outpatient (BNV) | payer OTHER, SELFPAY | PROVIDERS: PCP Internal Medicine; Visit Provider Obstetrics & Gynecology | DX: N93.9 Abnormal uterine and vaginal bleeding, unspecified (principal); N84.0 Polyp of corpus uteri | CPT/HCPCS: 58558 ==

== ENCOUNTER 2023-10-31 08:03 | Outpatient (REF) | payer OTHER, SELFPAY ==
[2023-10-31 15:32] LABS: CT PCR NOT DETECTED (Not Detect.); NG PCR NOT DETECTED (Not Detect.)
== END 2023-10-31 08:04 | disposition home or self-care (01) ==
LOC: HO.LNP 08:03
PROVIDERS: PCP Nurse Practitioner Primary Care; Visit Provider Obstetrics & Gynecology
DX: R10.2 Pelvic and perineal pain (principal); Z32.02 Encounter for pregnancy test, result negative
CPT/HCPCS: 81002; 81025; 87491; 87591

== ENCOUNTER 2023-10-31 08:03 | Outpatient (AMB) | payer OTHER, SELFPAY ==
--- NOTE | 2023-10-31 08:14 | MHC.OFFVIS ---
Vital Signs 10/31/23 08:15 Height 4 ft 11 in Weight 128 lb BMI 25.9 Intake Visit Reasons: post op/ MRI results Furnace Packer Required: Yes Furnace Packer Language: Electrical Plumbing Supervisor Services: Furnace Packer Present (in person) Furnace Packer Name: Dayana SANTIAGO Information Interpreted: non-clinical & clinical Talend Developer: Talend Developer Present (Dayana SANTIAGO) Accompanied by: Self / Same As Patient Allergies naproxen Adverse Reaction (Verified 10/31/23 08:15) Palpitations HPI Comments Details: The patient is presenting post hysteroscopy D&C with minimal vaginal bleeding no feverishness chills or abdominal pain. The patient is complaining of pelvic pain radiating to her right flank over the last 3 days no fever or chills no nausea or vomiting no urinary symptoms no vaginal discharge. 10/03 Hysteroscopy showed was within normal except for a small polyp was excised and the D&C was performed The pathology showed the following: A. Endometrium, polyp, biopsy: Mid-secretory endometrium; negative for atypia, hyperplasia or malignancy. B. Endometrium, curettage: Fragments of mid-secretory endometrium; negative for atypia, hyperplasia or malignancy 09/30 pelvic ultrasound showed the following: IMPRESSION: 1. A 2.7 cm heterogeneous lesion with echogenic foci characteristic of calcifications characteristic of a fibroid located towards the lower uterine segment was not appreciated on the prior exam. 2. A 0.3 cm echogenic focus within the endometrium may possibly represent an endometrial polyp. 3. Right adnexal anechoic tubular structure may represent a hydrosalpinx. 4. Left ovarian 2.1 cm cyst is difficult to fully characterize due to the limited visualization. 10/21 Pelvic MRI showed bilateral normal ovaries no evidence of myoma and endometrial polyp measuring 2.9 x 1.6 cm The following workup for AUB was done: H&H= .4 prolactin, hCG, GC and chlamydia were negative. TSH was low, free T4 within normal Co testing was done in 09/08 was negative. Mammogram 11/10 was BI-RADS 1, another screening mammogram scheduled on 11/12/2023 Repeat ultrasound done today, no official report available, unofficial reading showed normal endometrium measuring 0.8 cm with no evidence of polyp, lower uterine segment myoma measuring 2 x 1.8 x 1.9 cm previously measuring 2.7 x 1.9 x 2 cm bilateral normal ovaries with no ovarian cysts PFSH Medical History ASCUS of cervix with negative high risk HPV Thyroid cancer Surgical History Tubal ligation status S/P removal of thyroid nodule Family History Paternal Aunt Thyroid ca Paternal Aunt Uterine cancer Paternal Aunt Breast cancer Social History Household Members: Spouse and Children Housing: House Are you a primary child care assistant to a significant other at home: No Do you presently have visiting nurse or other home services: No Alcohol intake: never Patient Tobacco Use Status: Former Tobacco user service: No Current occupational status: employed Current occupation: [employer] Sexual orientation: Straight/Heterosexual Gender identity: Female Female Reproductive History Menstrual Age of Menarche: 10 Review of Systems Const All systems reviewed & are unremarkable except as noted in HPI and below Reports as per HPI and Reports no additional complaints GI Reports no additional complaints Reports no additional complaints Physical Exam Vital Signs: BMI result Body Mass Index 25.9 GI Palpation (GI): Tenderness to palpation present (GI) (mild ) and no guarding General: Yes no CVA tenderness External Female Exam: normal external appearance and normal appearance of the urethra Speculum Exam - Vagina: normal appearance of the vagina, normal palpation, no lesions and no masses Speculum Exam - Cervix: normal appearance of the cervix, normal palpation, no lesions, no masses and nontender Bimanual exam- vagina & uterus: normal bimanual exam, normal palpation, uterine size normal, normal palpation, uterine shape normal, No Cervical tenderness present and Uterine tenderness Bimanual Exam- Adnexa, other: normal adnexae and tender (Bilateral) Back/Spine/Pelvis Back: no CVA tenderness Results AMB Test Urine AMB Test Urine Negative Last Edit by Dayana Arthur CMA on 10/31/23 08:36 AMB Urinalysis Dipstick UR Leukocytes Negative Last Edit by Dayana Arthur CMA on 10/31/23 08:37 UR Nitrite Negative Last Edit by Dayana Arthur CMA on 10/31/23 08:37 UR Urobilinogen Normal Last Edit by Dayana Arthur CMA on 10/31/23 08:37 UR Protein Negative Last Edit by Dayana Arthur CMA on 10/31/23 08:37 UR Ph 7.0 Last Edit by Dayana Arthur, ASPHALT MACHINE OPERATOR on 10/31/23 08:37 UR Blood Negative Last Edit by Dayana Arthur, ASPHALT MACHINE OPERATOR on 10/31/23 08:37 UR Specific [place] 1.005 Last Edit by Dayana Arthur, HAM on 10/31/23 08:37 UR Ketone Negative Last Edit by Dayana Arthur, ASPHALT MACHINE OPERATOR on 10/31/23 08:37 UR Bilirubin Negative Last Edit by Dayana Arthur, ASPHALT MACHINE OPERATOR on 10/31/23 08:37 UR Glucose Negative Last Edit by Dayana Arthur CMA on 10/31/23 08:37 Results Reviewed Results Reviewed: Laboratory Last Values Urine pH (Clinic) 7.0 10/31/23 08:35 Specific [place] (Clinic) 1.005 10/31/23 08:35 Ur Protein (Clinic) Negative 10/31/23 08:35 Ur Ketones (Clinic) Negative 10/31/23 08:35 Urine Blood (Clinic) Negative 10/31/23 08:35 Urine Nitrite Negative 10/31/23 08:35 Urine Bilirubin (Clinic) Negative 10/31/23 08:35 Urobilinogen (Clinic) Normal 10/31/23 08:35 Leukocyte Esterase (Clinic) Negative 10/31/23 08:35 Urine Glucose (Clinic) Negative 10/31/23 08:35 Tst Clinic Negative 10/31/23 08:35 Assessment & Plan Assessment & Plan (1) Uterine myoma: Code(s): D25.9 - Leiomyoma of uterus, unspecified Category: Medical Plan: Discussed with the patient the discrepancy between the previous pelvic ultrasound , pelvic MRI and intraoperative hysteroscopic findings. Because of this discrepancy between the finding on pelvic ultrasound and pelvic MRI and intraoperative finding during hysteroscopy , repeat ultrasound was done today, no official report available but unofficial findings showed no evidence of endometrial polyp . There is a lower uterine segment myoma measuring 2 x 1.9 x 1.8 cm previously measuring 2.7 x 1.9 x 2 cm. Discussed with the patient the findings on pelvic ultrasound & the risk of myosarcoma; discussed with the patient the options of treatment including expectant management versus hysterectomy; the pros and cons, risks benefits of each approach were discussed with the patient including the fact that in cases of myosarcoma, surgical treatment can lead to early diagnosis and positively affects the prognosis; after further discussion, the patient decided to proceed with expectant management. Will repeat pelvic ultrasound periodically. Instructions given to patient to call in case any of the following occurs: pressure symptoms, abnormal uterine bleeding, pelvic pain; and to schedule a 12-months pelvic ultrasound and a follow-up appointment . All questions answered, the patient verbalized understanding and agreed with the plan . (2) Pelvic pain: Comment: Sided dating to the flap Code(s): R10.2 - Pelvic and perineal pain Category: Medical Plan: Urine dip and test done in the office were negative. Pelvic ultrasound done today showed no pathology except for the myoma, will send the patient to emergency room to rule out other pathology including kidney stone, appendicitis if the workup is negative recommended treatment for endometritis with ceftriaxone 500 mg IM and doxycycline 100 mg p.o. b.i.d. with Flagyl 500 mg p.o. b.i.d. for 14 days (3) Abnormal uterine bleeding (AUB): Code(s): N93.9 - Abnormal uterine and vaginal bleeding, unspecified Category: Medical Plan: Discussed with the patient the results of the work up done and options of treatment including Lysteda, BCP's, Mirena IUD, endometrial ablation and hysterectomy. All pros, cons, risks and benefits if each option was discussed with the patient and the patient decided to think about it and get back to us. All questions answered the patient verbalized understanding. (4) Ovarian cyst: Comment: Suboptimally visualized by ultrasound and bilateral ovarian calcification Code(s): N83.209 - Unspecified ovarian cyst, unspecified side Category: Medical Plan: Explained to the patient the finding on MRI and today's pelvic ultrasound showing bilateral normal ovaries, the patient was reassured (5) Abnormal TSH: Code(s): R79.89 - Other specified abnormal findings of blood chemistry Category: Medical Plan: Discussed with the patient the low TSH with normal free T4, recommended the patient to contact her primary care physician for further management Orders: Orders AMB HCG Urine Test Today Z32.02 - Encounter for test, result negative CT NG by PCR Today R10.2 - Pelvic and perineal pain US pelvic and transvaginal Today D25.9 - Leiomyoma of uterus, unspecified, R10.2 - Pelvic and perineal pain US pelvic and transvaginal Today R10.2 - Pelvic and perineal pain AMB Urinalysis Dipstick Today Z32.02 - Encounter for test, result negative Coding Level of Care Code Est Pt Level 3 (35223) Diagnoses Uterine myoma D25.9 Pelvic pain R10.2 Abnormal uterine bleeding (AUB) N93.9 Ovarian cyst N83.209 Abnormal TSH R79.89
[2023-10-31 08:15] VITALS: BMI 25.9
== END 2023-10-31 12:54 | disposition home or self-care (01) ==
LOC: HO.HWS 08:03
PROVIDERS: PCP Nurse Practitioner Primary Care; Visit Provider Obstetrics & Gynecology
DX: D25.9 Leiomyoma of uterus, unspecified (principal); R10.2 Pelvic and perineal pain; N93.9 Abnormal uterine and vaginal bleeding, unspecified; N83.209 Unspecified ovarian cyst, unspecified side; R79.89 Other specified abnormal findings of blood chemistry; Z32.02 Encounter for pregnancy test, result negative
CPT/HCPCS: 99213

== ENCOUNTER 2023-10-31 08:47 | Outpatient (REF) | payer OTHER, SELFPAY ==
--- NOTE | ~2023-10-31 | US_ITS ---
EXAMINATION: US PELVIS CLINICAL INFORMATION: Pelvic and perineal pain. LMP unknown. COMPARISON: September 20, 2023 TECHNIQUE: Ultrasound of the pelvis is performed using both transabdominal and transvaginal transducers along with Doppler. Transvaginal imaging is performed due to inadequate visualization transabdominally. FINDINGS: Uterus: The uterus is anteverted and measures 8.1 x 3.9 x 6.0 cm. Uterine echotexture is heterogeneous. The double wall endometrial thickness is 0.8 mm. Possible lower uterine segment/cervical fibroid measures 2.0 x 1.9 x 1.8 cm. Adnexa: Both ovaries are visualized. There is normal color flow to the adnexa. There is small pelvic ascites. Right ovary measures 3.0 x 1.8 x 2.4 cm. Left ovary measures 2.0 x 1.8 x 1.9 cm. US/US pelvic and transvaginal IMPRESSION: Possible lower uterine segment/cervical fibroid. Consider follow-up imaging with MRI pelvis as clinically indicated. Electronically signed by: Alberto Rodriguez MD 10/31/2023 12:57 PM EDT
== END 2023-10-31 08:48 | disposition home or self-care (01) ==
LOC: HO.US 08:47
PROVIDERS: PCP Nurse Practitioner Primary Care; Visit Provider Obstetrics & Gynecology
DX: R10.2 Pelvic and perineal pain (principal); D25.9 Leiomyoma of uterus, unspecified
CPT/HCPCS: 76830; 76856

== ENCOUNTER 2023-10-31 10:37 | Emergency (ER) | payer OTHER, SELFPAY ==
--- NOTE | ~2023-10-31 | CT_ITS ---
EXAMINATION: CT ABDOMEN AND PELVIS WITH CONTRAST CLINICAL INFORMATION: Right lower quadrant tenderness. COMPARISON: None available. TECHNIQUE: Multidetector volumetric images were obtained from the superior aspect of the liver through the pubic symphysis following administration 85 mL of Omnipaque 350 intravenous contrast. Sagittal and coronal reformatted images were obtained on the technologist's workstation. Oral contrast: No This CT examination was performed using dose optimization techniques as appropriate, variously including the following: *Automated exposure control *Adjustment of mA and/or kV according to patient size (this includes techniques or standardized protocols for targeted exams where dose is matched to indication/reason for exam; i.e. extremities or head) *Use of iterative reconstruction technique DLP: 377 mGy-cm FINDINGS: LUNG BASES: The visualized lung bases are unremarkable. LIVER, GALLBLADDER, AND BILIARY TREE: The liver is normal in size, shape, and attenuation. No focal hepatic lesion or biliary ductal dilatation is present. The gallbladder is unremarkable with no evidence of radiopaque gallstones, gallbladder wall thickening, or obvious pericholecystic inflammatory changes. PANCREAS: Unremarkable. SPLEEN: Unremarkable. ADRENAL GLANDS: Unremarkable. KIDNEYS AND URETERS: The kidneys are normal in size, shape, and attenuation. No hydronephrosis, hydroureter, or calculi seen. No perinephric stranding. BLADDER: Unremarkable. GASTROINTESTINAL TRACT: The small and large bowel are unremarkable. The appendix is unremarkable. ABDOMINAL WALL: There is a very small fat-containing umbilical hernia. LYMPH NODES: Normal. VASCULAR: Unremarkable. PELVIC VISCERA: The uterus is unremarkable. A 1.9 cm right ovarian simple follicle is seen, for which no imaging follow-up is recommended. Bilateral tubal ligation clips are noted. There is a small amount of nonspecific free fluid in the cul-de-sac. OSSEOUS STRUCTURES: Unremarkable. CT/CT abdomen pelvis w IV con IMPRESSION: 1. A 1.9 cm right ovarian simple follicle is seen, which requires no imaging follow-up. 2. There is a small amount of free fluid in the cul-de-sac. 3. There is a very small fat-containing umbilical hernia. Fleischner guidelines were followed. Electronically signed by: Guevara Mitchell MD 10/31/2023 08:45 PM EDT
[2023-10-31 11:06] VITALS: BP 141/38; PULSE 82; RESP 20; TEMP 36.2; O2SAT 100; BMI 24.5
--- NOTE | 2023-10-31 11:11 | ED.GENADULT ---
HPI - General Adult General Chief complaint: Abdominal Pain Stated complaint: Lower abd pain R side Time Seen by Provider: 10/31/23 16:06 Source: patient and other Mode of arrival: ambulatory Limitations: no limitations History of Present Illness ED Provider: [facility] narrative: Patient is a 42-year-old female with history of thyroid CA, ASCUS of cervix with high risk HPV, s/p hysteroscopy D&C, uterine myoma presenting from Dr. Causey's office with complaint of right lower quadrant abdominal tenderness, radiating to back for the past 3 days. Denies fevers. Joe nausea/vomiting/diarrhea. Denies dysuria, hematuria, urgency or other urinary symptoms. Denies abnormal vaginal discharge. Dr. Causey sent patient to rule out appendicitis, ureteral calculi. Patient states pain this morning was 6/10, states pain is currently 4/10. Took some ibuprofen this morning with mild relief. complaint: RLQ abdominal pain Onset (ago): day(s) Location: abdomen Radiation: back Quality: aching Pain Consistency: constant Relieving factors: rest Exacerbating factors: movement and other (palpation) Associated symptoms: denies other symptoms Treatments prior to arrival: NSAID Related Data Home Medications ?Medication ?Instructions ?Recorded ?Confirmed levothyroxine 125 mcg tablet 125 mcg PO DAILY 09/02/20 10/04/23 (Euthyrox) cholecalciferol (vitamin D3) 125 125 mcg PO DAILY 07/03/22 07/03/22 mcg (5,000 unit) tablet (Vitamin D3) magnesium 100 mg capsule 100 mg PO DAILY 07/03/22 07/03/22 omega-3 fatty acids 1,000 mg PO DAILY 07/03/22 07/03/22 Allergies Allergy/AdvReac Type Severity Reaction Status Date / Time naproxen AdvReac Palpitation Verified 10/31/23 11:09 s Review of Systems Review of Systems: As per HPI. Yes all other systems are reviewed and are negative Constitutional: Constitutional: Reports as per HPI [facility] Past Medical History Medical History ASCUS of cervix with negative high risk HPV Thyroid cancer Surgical History Tubal ligation status S/P removal of thyroid nodule Family History Family History Paternal Aunt Thyroid ca Paternal Aunt Uterine cancer Paternal Aunt Breast cancer Social History Social History Household Members: Spouse and Children Housing: House Are you a primary daycare assistant to a significant other at home: No Do you presently have visiting nurse or other home services: No Alcohol intake: never Patient Tobacco Use Status: Former Tobacco user Advance Directives: No Advance Directives Information Provided: Yes Do you have a plan to hurt others: No Plan service: No Current occupational status: employed Current occupation: [employer] Sexual orientation: Straight/Heterosexual Gender identity: Female Physical Exam ED Vital Signs: Vital Signs - 24 hr 10/31/23 11:06 10/31/23 17:16 10/31/23 20:59 Temperature 97.1 F 98.5 F 98.2 F Pulse Rate 82 60 74 Respiratory Rate 20 20 20 Blood Pressure 141/38 H 106/64 124/53 L Pulse Oximetry 100 100 98 Oxygen Delivery Method Room Air Room Air Room Air 10/31/23 21:45 Temperature 98.2 F Pulse Rate 74 Respiratory Rate 20 Blood Pressure 124/53 L Pulse Oximetry 98 Oxygen Delivery Method Room Air BMI result Body Mass Index 24.5 Vital signs have been reviewed and appear to be correct. Blood pressure normal. Heart rate normal. Respiratory rate normal. Temperature normal. Oxygen saturation normal. Const General: cooperative, healthy appearing and no acute distress Orientation/consciousness: oriented to person, oriented to place, oriented to time and patient oriented x3 Limitations: no limitations HENMT Head: Yes normocephalic and Yes atraumatic Ears: external ears normal General nose exam: Normal external nose present Face and sinus: Yes face symmetric Mouth: oropharynx normal and moist mucous membranes Throat: Yes uvula midline Eyes Pupils: Equal, round and reactive pupils present Neck Neck: Yes normal visual inspection and Yes supple Resp Effort & Inspection: normal respiratory effort and able to speak in complete sentences Auscultation: clear to auscultation bilaterally Cardio Rate: regular rate Rhythm: regular rhythm Heart sounds: S1 normal heart sound present and S2 normal heart sound present GI Palpation (GI): Soft to palpation, Tenderness to palpation present (GI) in the RLQ, no guarding and No Rebound tenderness present Auscultation: normoactive bowel sounds General: Yes no CVA tenderness Back/Spine/Pelvis Back: no CVA tenderness Skin General skin exam: elasticity normal and turgor normal Neuro General: oriented to person, oriented to place, oriented to time, patient oriented x3, moves all extremities, no focal motor deficits and CN's II-XI intact bilaterally Cranial nerves: Yes Equal, round and reactive pupils present Cognition (Neuro): normal cognition Extrem General: Yes full ROM, Yes no pedal edema and Yes no calf tenderness Psych Mental Status: mental status grossly normal Affect: normal affect Thought process: Normal thought process present Course Course Course Narrative: RME: Done by ROCKY Jane. 42-year-old female sent by Dr. Causey for evaluation for right lower quadrant tenderness for the past 3 days. Patient denies any nausea vomiting, dysuria or hematuria. Patient denies any trauma. Patient was evaluated by Dr. Causey at the office who states she is positive for CMT and right adnexal tenderness. Patient states he did an ultrasound which he states was not concerning. Dr. Causey states it does no other infection caused of right lower quadrant pain patient should be treated as endometritis with metronidazole, doxy, ceftriaxone. Physical exam positive for right liquid tenderness on palpation. Negative for any CVA tenderness. Reevaluation(s) Reevaluation #1: Patient received in sign-out pending CT imaging to evaluate for pathology. The patient's CT scan shows a 1.9 cm right ovarian cyst. This does explain the patient's pain and her location is in the right lower abdomen. She has no central pelvic pain or left-sided abdominal pain. I feel that endometritis is less likely at this time. I did discuss possible treatment for endometritis the patient also does not feel that she would like to take antibiotics. She has no fever, no vaginal discharge. She will follow-up with OBGYN regarding her ovarian cyst. She was given return precautions, especially if she develops a fever Time: 21:17 Medications Administered Discontinued Medications Generic Name Dose Route Start Last Admin Trade Name Freq PRN Reason Stop Dose Admin Iohexol 85 ml 10/31/23 17:44 10/31/23 17:44 Iohexol 350 Mg/Ml 100 Ml Infus..Btl IV 10/31/23 17:45 85 ml ONCE ONE Administration Medical Decision Making Medical Decision Making [facility] Narrative: Patient is a 42-year-old female with history of thyroid CA, ASCUS of cervix with high risk HPV, s/p hysteroscopy D&C, uterine myoma presenting from Dr. Causey's office with complaint of right lower quadrant abdominal tenderness, radiating to back for the past 3 days. On exam patient is awake, A+Ox3, VS WNL, afebrile, normal neurological exam without focal deficits, physical exam findings as above. Given reported symptoms and physical exam findings, initial differential includes appendicits, renal/ureteral calculi, UTI. Labs unremarkable. Urinalysis is without evidence of infection. Patient signed out to ROCKY Manning pending CT results. He is aware of Dr. Causey's plan to treat for endometritis if CT is negative. Differential Diagnosis Differential Diagnoses: The differential diagnosis associated with the presentation includes As per [facility]. Admission/Observation Consideration of admission/observation: Escalation of care including admission/observation considered Patient would have been admitted to the hospital had their work up had any findings where hospital admission was appropriate and their clinical presentation warranted hospital admission. Lab Data [facility] Lab Attestation statement: I reviewed the patient's lab results. As per [facility] 10/31/23 11:40 10/31/23 11:40 Labs: Lab Results 10/31/23 Range/Units 11:40 WBC 7.2 (4.8-10.8) X10*3/uL RBC 4.73 (4.20-5.50) X10*6/uL Hgb 12.2 (12.0-16.0) g/dl Hct 37.2 (37.0-47.0) % MCV 78.6 L (80.0-98.0) fL MCH 25.8 L (27.0-33.0) pg MCHC 32.8 (31.0-35.0) g/dl RDW 13.4 (11.0-16.0) % Plt Count 353 (160-400) X10*3/uL MPV 9.9 (9.4-12.3) fL Immature Gran % (Auto) 0.4 (0.0-0.4) % Neut % (Auto) 62.9 (45-73) % Lymph % (Auto) 26.8 (20-40) % [place] % (Auto) 6.7 (2-11) % Eos % (Auto) 2.6 (0-4) % Baso % (Auto) 0.6 (0-2) % Lymph # (Auto) 1.9 (1.2-4.9) X10*3/uL Aurora # (Auto) 0.5 (0.1-1.2) X10*3/uL Eos # (Auto) 0.2 (0.0-0.4) X10*3/uL Baso # (Auto) 0.0 (0.0-0.2) X10*3/uL Abs Immat Gran (auto) 0.03 (0.00-0.03) X10*3/uL Absolute Neuts (auto) 4.5 (2.0-8.3) x10*3/uL Absolute Nucleated RBC 0.000 (0.0-0.012) X10*3/uL Nucleated RBC % (auto) 0.0 (0.0-0.2) /100WBC PT 11.8 (11.1-13.3) SEC INR 1.0 (0.9-1.1) APTT 31.8 (26.0-36.8) SEC Sodium 138 (135-145) mmol/L Potassium 4.3 (3.3-5.1) mmol/L Chloride 109 H (96-108) mmol/L Carbon Dioxide 22 (22-29) mmol/L Anion Gap 11 L (12-20) BUN 8 L (9-16) mg/dL Creatinine 0.74 (0.5-1.4) mg/dL Estim Creat Clear Calc 73.4 Estimated GFR > 60 Random Glucose 110 (60-115) mg/dL Calcium 9.0 (8.4-10.2) mg/dL Total Bilirubin 0.4 (0.0-1.0) mg/dL AST 18 (5-31) U/L ALT 14 (0-31) U/L Alkaline Phosphatase 83 (39-117) U/L Total Protein 7.4 (6.5-8.0) g/dL Albumin 4.3 (3.5-5.0) g/dL Beta HCG, Quant < 2 mIU/mL Urine Color Yellow Urine Appearance Clear Urine pH 6.0 (5.0-9.0) Ur Specific [place] <= 1.005 (1.005-1.025) Urine Protein Negative (Neg-Trace) mg/dL Urine Glucose (UA) Negative (Negative) mg/dL Urine Ketones Negative (Negative) mg/dL Urine Blood Negative (Negative) Urine Nitrite Negative (Negative) Ur Leukocyte Esterase Negative (Negative) Urine Test NEGATIVE (NEGATIVE) External Record Review External record reviewed: Inpatient record, Office record and Outpatient record Discharge Plan Discharge Clinical Impression: Ovarian cyst Patient Disposition: Home, Self-Care Instructions: Ovarian Cyst (ED) Additional Instructions: Your CT scan shows a 1.9 cm ovarian cyst that is the likely cause of your pain. I do not feel that you have an infection at this time as you do not have a fever or a high white blood cell count or vaginal discharge If you develop a fever, you may return to the ER or follow up with Dr. Causey as at that point you would likely require antibiotics Return for new or worsening symptoms Prescriptions: No Action levothyroxine [Euthyrox] 125 mcg tablet 125 mcg PO DAILY magnesium 100 mg Capsule 100 mg PO DAILY Blakely 3 Capsule 1,000 mg PO DAILY cholecalciferol (vitamin D3) [Vitamin D3] 125 mcg (5,000 unit) Tablet 125 mcg PO DAILY Stand Alone Forms: Work/School Release Interventions: ED Discharge Assessment Last Done: 10/31/23 21:45 Discharge Date/Time: 10/31/23 21:46 Print Language: Welsh
[2023-10-31 11:45] LABS: MANUAL DIFF FLAG NO
[2023-10-31 11:47] LABS: Appearance Urine Clear; Color Urine Yellow; Glucose Urine UA Negative (Negative); Leukocyte Esterase Urine Negative (Negative); Nitrite Urine Negative (Negative); Specific Gravity - Urine <= 1.005 (1.005-1.025); Urine Blood Negative (Negative); Urine Ketones Negative (Negative); Urine Protein Negative (Neg-Trace)
[2023-10-31 11:49] LABS: Basophils Percent Auto 0.6 % (0-2); Eosinophils Absolute Auto 0.2 X10*3/uL (0.0-0.4); Eosinophils Percent Auto 2.6 % (0-4); Hematocrit 37.2 % (37.0-47.0); Hemoglobin 12.2 g/dl (12.0-16.0); Imm Gran Abs Auto 0.03 X10*3/uL (0.00-0.03); Imm Gran Pct Auto 0.4 % (0.0-0.4); Lymphocytes Absolute Auto 1.9 X10*3/uL (1.2-4.9); Lymphocytes Percent Auto 26.8 % (20-40); Mean Corpuscular HGB Conc 32.8 g/dl (31.0-35.0); Mean Corpuscular Hemoglobin 25.8 pg (27.0-33.0); Mean Corpuscular Volume 78.6 fL (80.0-98.0); Mean Platelet Volume 9.9 fL (9.4-12.3); Monocytes Absolute Auto 0.5 X10*3/uL (0.1-1.2); Monocytes Percent Auto 6.7 % (2-11); Neutrophils Absolute Auto 4.5 x10*3/uL (2.0-8.3); Neutrophils Percent Auto 62.9 % (45-73); Platelet Count 353 X10*3/uL (160-400); Red Blood Count 4.73 X10*6/uL (4.20-5.50); Red Cell Distribution Width 13.4 % (11.0-16.0); UPreg QC Valid YES; Urine Pregnancy NEGATIVE (NEGATIVE); White Blood Count 7.2 X10*3/uL (4.8-10.8)
[2023-10-31 11:57] LABS: Prothrombin Time 11.8 SEC (11.1-13.3)
[2023-10-31 12:00] LABS: Partial Thromboplastin Time 31.8 SEC (26.0-36.8)
[2023-10-31 12:11] LABS: Alanine Aminotransferase 14 U/L (0-31); Albumin Level 4.3 g/dL (3.5-5.0); Alkaline Phosphatase 83 U/L (39-117); Anion Gap 11 (12-20); Aspartate Amino Transferase 18 U/L (5-31); Bilirubin Total 0.4 mg/dL (0.0-1.0); Blood Urea Nitrogen 8 mg/dL (9-16); Carbon Dioxide 22 mmol/L (22-29); Chloride 109 mmol/L (96-108); Creatinine Clr Calc Pharmacy 73.4; Estimated Glomerular Filt Rate > 60; Glucose Random 110 mg/dL (60-115); Potassium 4.3 mmol/L (3.3-5.1); Sodium 138 mmol/L (135-145); Total Protein 7.4 g/dL (6.5-8.0)
[2023-10-31 12:16] LABS: HCG Quantitative < 2 mIU/mL
[2023-10-31 17:16] VITALS: BP 106/64; PULSE 60; RESP 20; TEMP 36.9; O2SAT 100
[2023-10-31] MEDS: iohexoL 350 MG/ML 100 ML INFUS..BTL 85 ML IV (17:44)
[2023-10-31 20:59] VITALS: BP 124/53; PULSE 74; RESP 20; TEMP 36.8; O2SAT 98
[2023-10-31 21:45] VITALS: BP 124/53; PULSE 74; RESP 20; TEMP 36.8; O2SAT 98
== END 2023-10-31 21:46 | disposition home or self-care (01) ==
PROVIDERS: Physician Assistant; Emergency Provider Internal Medicine; PCP Nurse Practitioner Primary Care
DX: N83.201 Unspecified ovarian cyst, right side (principal); R10.2 Pelvic and perineal pain; R10.31 Right lower quadrant pain; Z79.899 Other long term (current) drug therapy
CPT/HCPCS: 36415; 74177; 80053; 81003; 81025; 84702; 85025; 85610; 85730; 99283; 99284; Q9967

== ENCOUNTER → 2023-11-11 14:15 | Outpatient (BNV) | payer OTHER, SELFPAY | PROVIDERS: Absent Provider Obstetrics & Gynecology; PCP Nurse Practitioner Primary Care; Visit Provider Internal Medicine | DX: Z12.31 Encounter for screening mammogram for malignant neoplasm of breast (principal) | CPT/HCPCS: 77063; 77067 ==

== ENCOUNTER 2023-11-11 16:23 | Outpatient (REF) | payer OTHER, SELFPAY ==
--- NOTE | ~2023-11-11 | MM_ITS ---
EXAMINATION: MM SCREENING DIGITAL BREAST TOMOSYNTHESIS, BILATERAL CLINICAL INFORMATION: Screening. Asymptomatic. COMPARISON: Mammography: Comparison is made with available priors TECHNIQUE: Digital breast mammography with tomosynthesis is performed in both the craniocaudal and mediolateral oblique views along with computer-aided detection (CAD). FINDINGS: The breasts are heterogeneously dense, which may obscure small masses (ACR BI-RADS breast composition Category c). There are no significant masses, abnormal calcifications, or other abnormalities. MM/MM tomosynthesis screening BI IMPRESSION: No mammographic evidence of malignancy. ASSESSMENT: BI-RADS BI-RADS 1 - Negative RECOMMENDATION: Routine annual mammography screening. 1 year F/U This examination should not preclude the clinical evaluation of a suspicious palpable abnormality. This patient's information was entered into a reminder system with a target due date for their next mammogram. Electronically signed by: Letty Balderas DO 11/22/2023 10:47 AM EDT
== END 2023-11-11 16:24 | disposition home or self-care (01) ==
LOC: HO.MAMMO 16:23
PROVIDERS: Absent Provider Obstetrics & Gynecology; PCP Nurse Practitioner Primary Care; Visit Provider Nurse Practitioner Primary Care
DX: Z12.31 Encounter for screening mammogram for malignant neoplasm of breast (principal)
CPT/HCPCS: 77063; 77067

== ENCOUNTER 2024-09-22 08:34 | Outpatient (AMB) | payer SELFPAY ==
--- NOTE | 2024-09-22 08:43 | A.OFFVIS_ITS ---
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 No complaints. Last Pap/HPV was negative in 09/08, this was preceded by ascus/HPV negative in 09/07 Last Mammogram was BI-RADS 1 in 11/11 The previous screening colonoscopy [facility] Medical History ASCUS of cervix with negative high risk HPV Thyroid cancer Surgical History Tubal ligation status S/P removal of thyroid nodule Family History Paternal Aunt Thyroid ca Paternal Aunt Uterine cancer Paternal Aunt Breast cancer Social History Household Members: Spouse and Children Housing: House Are you a primary care transition mgr to a significant other at home: No Do you presently have visiting nurse or other home services: No Alcohol intake: never Patient Tobacco Use Status: Former Tobacco user service: No Current occupational status: employed Current occupation: [employer] Sexual orientation: Straight/Heterosexual Gender identity: Female Female Reproductive History Menstrual Age of Menarche: 10 Date of last pap smear: 09/01/21 (negative) History of abnormal mammogram: No (11/11/23 negative mammo) Review of Systems Const All systems reviewed & are unremarkable except as noted in HPI and below Card Reports as per HPI Resp Reports as per HPI GI Reports as per HPI and Reports no additional complaints Reports as per HPI Physical Exam Vital Signs: Last Vital Signs BP 118/68 09/22/24 08:44 BMI result Body Mass Index 24.6 Const General: cooperative, healthy appearing and comfortable Chest Chest palpation & inspection: normal inspection of the chest and normal palpation of entire chest wall Breast/axilla inspection: normal inspection of the breasts and normal inspection of the axillae Breast/axilla palpation: normal palpation of the breasts, normal palpation of the axillae and no axillary lymphadenopathy Resp Effort & Inspection: normal respiratory effort Auscultation: clear to auscultation bilaterally Percussion: percussion normal Cardio Palpation: normal PMI Rate: regular rate Rhythm: regular rhythm Heart sounds: no murmurs and no rubs Peripheral pulses: Peripheral pulses 2+ throughout GI Inspection: Yes normal to inspection Palpation (GI): Soft to palpation, nontender, no guarding, not rigid and No hepatosplenomegaly present Percussion: Yes normal to percussion Auscultation: normal bowel sounds Rectal Exam - Female: deferred General: Yes bladder normal to palpation External Female Exam: No lesion Speculum Exam - Vagina: normal appearance of the vagina, normal palpation, normal vaginal discharge and not erythematous Speculum Exam - Cervix: abnormal appearance of the cervix (Endocervical lesion protruding through the cervix polyp versus myoma, other) and normal palpation Bimanual exam- vagina & uterus: normal bimanual exam, normal palpation, uterine size normal, bladder normal to palpation, consistency normal and normal palpation Bimanual Exam- Adnexa, other: normal adnexae, no masses and no tenderness Office Procedures BINDER CHAINSTITCH Biopsy Cervical biopsy Pre-Procedure Counseling: Before beginning the procedure, I conducted comprehensive counseling with the patient. We thoroughly discussed the procedure itself, including its details, alternatives, and all associated risks. This included but not limited to the following complications such as bleeding, infection, and injury to the vagina, bladder, and vessels, as well as the potential need for transfusion with all its associated risks. Subsequently, the patient sign the consent. Urine test done in the office was negative Procedure: During the procedure, the following steps were performed: A speculum was inserted Cervical biopsies were obtained from the endocervical lesion Hemostasis was achieved using Monsel solution, and the patient tolerated the procedure well. Post-Procedure Instructions: The patient was advised to promptly contact the office or the after hours answering service or go to the emergency room if experiencing a temperature exceeding 100.4?F, abdominal pain, nausea/vomiting, or bleeding. Additionally, the patient was instructed to abstain from vaginal intercourse and bathtub use. The patient confirmed understanding of these instructions. Discharge Instructions: The patient was instructed to schedule a follow-up appointment in 2 weeks for further evaluation and management. Please note that this note was generated using a voice recognition program, and errors may have occurred during transcript evaluator. 35931-Laisej of Cervix Procedure code (CPT) selection complete Assessment & Plan Assessment & Plan (1) Well woman exam: Comment: ASCUS HPV negative in 10/08 Negative co testing in 09/08 Code(s): Z01.419 - Encounter for gynecological examination (general) (routine) without abnormal findings Category: Medical Plan: Cotesting done. Mammogram ordered. GI referral placed for screening colonoscopy Counseled the patient about the recommended dietary allowance of 1000 mg of Calcium & 600 IU of vitamin D. The patient was instructed to perform monthly self-breast exams and to schedule an annual exam in a year; All questions answered and the patient verbalized understanding. Instructed the patient to schedule annual exam in a year (2) Oligomenorrhea: Code(s): N91.5 - Oligomenorrhea, unspecified Category: Medical Plan: UPT done in the office was negative. Co testing done,CBC, TSH, FSH/LH, HCG, and pelvic ultrasound ordered. Discussed with the patient the different causes of abnormal bleeding including thyroid disorders, uterine and ovarian pathology, endometrial hyperplasia, carcinoma and other potential causes. Discussed with the patient the work up including CBC (to r/o anemia), TSH, FSH/LH pelvic Ultrasound, endometrial biopsy to r/o endometrial pathology. All questions answered and the patient verbalized understanding. Instructed the patient to schedule an appointment for an endometrial biopsy in 2 weeks. (3) Abnormal cervix finding: Comment: Endocervical lesion, polyp versus myoma or other Code(s): N88.9 - Noninflammatory disorder of cervix uteri, unspecified Category: Medical Plan: Discussed with the patient the finding on pelvic exam, endocervical lesion polyp versus endometrium or others, cervical biopsy done, see procedure note Orders: Orders MM tomosynthesis screening BI Today Z12.31 - Encounter for screening mammogram for malignant neoplasm of breast TSH reflex Free T4 Today N93.9 - Abnormal uterine and vaginal bleeding, unspecified Follicle Stimulating Hormone Today N93.9 - Abnormal uterine and vaginal bleeding, unspecified Complete Blood Count no Diff Today N93.9 - Abnormal uterine and vaginal bleeding, unspecified AMB BINDER CHAINSTITCH Biopsy Today N88.9 - Noninflammatory disorder of cervix uteri, unspecified HCG Quantitative Today N93.9 - Abnormal uterine and vaginal bleeding, unspecified Lutenizing Hormone Today N93.9 - Abnormal uterine and vaginal bleeding, u nspecified US pelvic and transvaginal Today N93.9 - Abnormal uterine and vaginal bleeding, unspecified Referrals Gastroenterology Referral Z12.11 - Encounter for screening for malignant neoplasm of colon Coding Level of Care Code Est Pt Level 3 (57896) Est Pt Prev Care 40-64y(67022) Diagnoses Well woman exam Z01.419 Oligomenorrhea N91.5 Abnormal cervix finding N88.9 CPT Codes BINDER CHAINSTITCH Biopsy - CPT: 59744-Tyjkrx of Cervix ([id number])
[2024-09-22 08:44] VITALS: BP 118/68; BMI 24.6
== END 2024-09-22 09:15 | disposition home or self-care (01) ==
LOC: HO.HWS 08:34
PROVIDERS: PCP Internal Medicine; Visit Provider Obstetrics & Gynecology
DX: Z01.411 Encounter for gynecological examination (general) (routine) with abnormal findings (principal); N91.5 Oligomenorrhea, unspecified; N88.9 Noninflammatory disorder of cervix uteri, unspecified; Z32.02 Encounter for pregnancy test, result negative
CPT/HCPCS: 57500; 99396

== ENCOUNTER 2024-09-22 08:34 | Outpatient (REF) | payer SELFPAY ==
--- OUTSIDE RECORDS SUMMARY | 2024-09-22 09:29 | XMS_ITS | Clinical Summary ---
Author Organization [employer] Address [address] [place] [address] [address] [place] [address] Care Team Providers Care Autocad Technician Name Role Phone Shana James DREW Primary Care Provider [phone] Allergies No known active allergies Medications ferrous sulfate 325 (65 Fe) MG EC tablet Take 1 tablet by mouth every other day. Take with Vitamin C 0 Active ascorbic acid (Vitamin C) 250 MG tablet Take 1 tablet by mouth every other day. Take with Iron. Do not take within 4 hours of thyroid medication 0 Active levothyroxine (Synthroid) 100 MCG tabletIndication s:Hypothyroidism , unspecified type Take 1 tab once daily 30-60 min before breakfast or other meds 90 tablet 3 4 Active Active Problems Problem Noted Date Diagnosed Date Acquired hypothyroidism 10/22/2019 Iron deficiency anemia 10/22/2019 History of parathyroidectomy 10/22/2019 History of total thyroidectomy 10/22/2019 Family History Medical History Relation Name Comments Breast cancer Father's Sister Thyroid cancer Father's Sister Uterine cancer Father's Sister Relation Name Status Comments Father's Sister Social History Tobacco Use Types Packs/Day Years Used Date Smoking Tobacco: Never Smokeless Tobacco: Never Tobacco Cessation:Counseling Given: Not Answered Alcohol Use Standard Drinks/Week Comments Never 0 (1 standard drink = 0.6 oz pur e alcohol) Depression Answer Date Recorded Patient Health Questionnaire-9 Score 2 11/21/2023 Patient Health Questionnaire-9 Score 2 11/21/2023 Last PHQ-9: Questionnaire Data Not on file 1 Depression Answer Date Recorded Patient Health Questionnaire-2 Score 0 11/21/2023 Comments Unknown Sex and Gender Information Value Date Recorded Sex Assigned at Female 12/18/2021 10:37 AM EDT Legal Sex Female 10:37 AM EDT Gender Identity Female 12/18/2021 10:37 AM EDT Sexual Orientation Straight 12/18/2021 10 :37 AM EDT Last Filed Vital Signs Vital Sign Reading Time Taken Comments Blood Pressure 106/62 11/21/2023 9:27 AM EDT Pulse 68 11/21/2023 9:27 AM EDT Temperature 36.6 C (97.9 F) 11/21/2023 9:27 AM EDT Respiratory Rate 18 11/21/2023 9:27 AM EDT Oxygen Saturation 99% 11/21/2023 9:27 AM EDT Inhaled Oxygen Concentration - - Weight 56.4 kg (124 lb 6.4 oz) 11/21/2023 9:27 A M EDT Height 152.4 cm (5') 11/21/2023 9:27 AM EDT Body Mass Index 24.3 11/21/2023 9:27 AM EDT Plan of Treatment Health Maintenance Due Date Last Done Comments CT Colonography 1978 Colonoscopy 1978 Colorectal Cancer Screening 1978 FIT DNA/Cologuard 1978 FIT 1978 FOBT 1978 SDOH Screening 1978 Sigmoidoscopy 1978 Disability Screening 1978 Alcohol/Substance Use Screening 1990 Family Planning (PISQ) 1993 HPV Vaccines (1 - 3-dose series) 1993 DTaP/Tdap/Td Vaccines (1 - Tdap) 1997 Hepatitis B Vaccines (1 of 3 - 19+ 3-dose series) 1997 COVID-19 Vaccine (3 - 2023- season) 2023 07/07/2020, 06/16/2020 Influenza Vaccine (#1) 2024 Mammogram 11/10/2024 11/11/2023, 10/20, 11/05/2022 Depression Screening 11/20/2024 11/21/2023, 11/21/19 Tobacco Screening 11/20/2024 11/21/2023 Cervical Cancer Screening 08/31/2026 HPV/Cotest 08/31/2026 08/31/2021, 08/18, 10/11/2020, Additional history exists Pap Smear 08/31/2026 08/31/2021, 09/19, 08/30/2020, Additional history exists Zoster Vaccines (1 of 2) 2028 RSV Patients and Patients Aged 60 years or older (1 - 1-dose 75+ series) 2053 HIV Screening Completed 09/25/2019 Hepatitis C Screening Completed 09/25/2019 HIB Vaccines Aged Out No longer eligi ble based on patient's age to complete this topic Hepatitis A Vaccines Aged Out No long er eligible based on patient's age to complete this topic IPV Vaccines Aged Out No longer eligi ble based on patient's age to complete this topic Meningococcal B Vaccine Aged Out No l onger eligible based on patient's age to complete this topic Meningococcal Vaccine Aged Out No micheal david eligible based on patient's age to complete this topic Pneumococcal Vaccine: Pediatrics (0 to 5 Years) and At-Risk Patients (6 to 49) Years Aged Out No longer eligible based on patient's age to complete this topic RSV under 20 months Aged Out No longe r eligible based on patient's age to complete this topic Rotavirus Vaccines Aged Out No longer eligible based on patient's age to complete this topic Procedures Procedure Name Priority Date/Time Associated Diagnosis Comments BI MAMMOGRAM SCREENING TOMOSYNTHESIS BILATERAL Routine 11/11/2023 4:25 PM EDT ZZZ HISTORICAL HPV E6/E7 RFLX MAX 16 18/45 Routine 08/31/2021 2:10 PM EDT HM PAP/HPV Routine 08/31/2021 ZZZ HISTORICAL HEPATITIS C AB W/REFL TO HCV RNA, QN, PCR Routine 09/25/2019 2:02 PM EDT HIV 1/2 ANTIGEN/ANTIBODY, FOURTH GENERATION W/RFL Routine 09/25/2019 2:02 PM EDT from Last 3 Months or Most Recently Relevant to Health Maintenance Results * BI Mammogram Screening Tomosynthesis Bilateral (11/11/2023 4:25 PM EDT) Anatomical Region Laterality Modality Breast Bilateral Mammography 11/11/2023 4:25 PM EDT Narrative 11/22/2023 10:50 AM EDT [facility] [address] [place] [address] Mammography Report Signed Patient: Frederic Stuart MR #: [id number] : 1980 Acct:[id number] Age/Sex: 42 / F ADM Date: 11/11/23 Loc: HO.MAMMO Attending Dr: Shana James NP Ordering Physician: SHANA JAMES NP Results: 1Negative Date of Service: 11/11/23 Follow Up: 1 Year From Orig inal Mammogram Procedure(s): MM tomosynthesis screening BI Accession Number(s): [id number] cc: SHANA JAMES NP EXAMINATION: MM SCREENING DIGITAL BREAST TOMOSYNTHESIS, BILATERAL CLINICAL INFORMATION: Screening. Asymptomatic. COMPARISON: Mammography: Comparison is made with available priors TECHNIQUE: Digital breast mammography with tomosynthesis is performed in both the craniocaudal and mediolateral oblique views along with computer-aided detection (CAD). FINDINGS: The breasts are heterogeneously dense, which may obscure small masses (ACR BI-RADS breast composition Category c). There are no significant masses, abnormal calcifications, or other abnormalities. MM/MM tomosynthesis screening BI IMPRESSION: No mammographic evidence of malignancy. ASSESSMENT: BI-RADS BI-RADS 1 - Negative RECOMMENDATION: Routine annual mammography screening. 1 year F/U This examination should not preclude the clinical evaluation of a suspicious palpable abnormality. This patient's information was entered into a reminder system with a target due date for their next mammogram. Electronically signed by: Letty Balderas DO 11/22/2023 10:47 AM EDT Dictated By: Letty Balderas DO Signed By: <Electronically signed by Letty Balderas DO in OV> 11/22/23 1047 DD/ 1625 TD/TT: 11/11/23 1635 Bank Analyst: Procedure Note Donotuseinterpreter, Image - 11/22/2023 [facility] [address] [place] [address] Mammography Report Signed Patient: Frederic Stuart R #: [id number] : 1980Acct:[id number] Age/Sex: 42 / FADM Date: 11/11/23 Loc: HO.MAMMO Attending Dr: Shana James BUFFING LINE SET UP WORKER Ordering Physician: SHANA JAMES NPResults: 1Negative Date of Service: 11/11/23Follow Up: 1 Year From Orig inal Mammogram Procedure(s): MM tomosynthesis screening BI Accession Number(s): [id number] cc: SHANA JAMES NP EXAMINATION: MM SCREENING DIGITAL BREAST TOMOSYNTHESIS, BILATERAL CLINICAL INFORMATION: Screening. Asymptomatic. COMPARISON: Mammography: Comparison is made with available priors TECHNIQUE: Digital breast mammography with tomosynthesis is performed in both the craniocaudal and mediolateral oblique views along with computer-aided detection (CAD). FINDINGS: The breasts are heterogeneously dense, which may obscure small masses (ACR BI-RADS breast composition Category c). There are no significant masses, abnormal calcifications, or other abnormalities. MM/MM tomosynthesis screening BI IMPRESSION: No mammographic evidence of malignancy. ASSESSMENT: BI-RADS BI-RADS 1 - Negative RECOMMENDATION: Routine annual mammography screening. 1 year F/U This examination should not preclude the clinical evaluation of a suspicious palpable abnormality. This patient's information was entered into a reminder system with a target due date for their next mammogram. Electronically signed by: Letty Balderas DO 11/22/2023 10:47 AM EDT Dictated By: Letty Balderas DO Signed By: <Electronically signed by Letty Balderas DO in OV> 11/22/23 1047 DD/ 1625 TD/TT: 11/11/23 1635 Bank Analyst: Shana James ANP IMG BI PROCEDURES Edited Result - Final * HPV E6/E7 RFLX MAX 16 18/45 (08/31/2021 2:10 PM EDT) HPV 16 RNA [facility]NP [facility] HPV 18/45 RNA [facility]NP [facility] HPV E6 E7 ADD TNP [facility] HPV mRNA E6/E7 rflx Not Detected Not Detected [facility] Comment: Methodology: Taxi Dancer-Mediated Amplification This assay detects E6/E7 viral messenger RNA (mRNA) from 14 high-risk HPV types (16,18,31,33,35,39,45,51,52,56,58,59,66,68). Cervical sources are required for HPV testing. If a vaginal source from a patient who has had a total hysterectomy with removal of cervix was submitted, please contact the testing laboratory for alternative testing options. For additional information, please refer to http://[employer]andel[employer] Project/faq/EYB679t4 (This link if provided for information/ educational purposes only.) THIS TEST WAS PERFORMED AT: [email or web address] [address] [place] [address],[place] [address] AP RODRIGUEZ MD 08/31/2021 2:10 PM EDT Cameron Causey MD HISTORICAL/NON ORDERABLE LABS Fi nal Result [facility] [address] * Pap Smear (08/31/2021) Historical Provider HEALTH MAINTENANCE Final Result * HEPATITIS C AB W/REFL TO HCV RNA, QN, PCR (09/25/2019 2:02 PM EDT) Pathologist [facility] HEPATITIS C ANTIBODY NON-REACT ATA NON-REACT ATA [facility] INDEX 0.05 <1.00 [facility] Comment: HCV antibody was non-reactive. There is no laboratory evidence of HCV infection. In most cases, no further action is required. However, if recent HCV exposure is suspected, a test for HCV RNA (test code 48250) is suggested. For additional information please refer to http://[employer]/faq/CGT28b0 (This link is being provided for informational/ educational purposes only.) HEPATITIS C ANTIBODY NON-REACT ATA NON-REACT ATA [facility] INDEX 0.05 <1.00 [facility] Comment: HCV antibody was non-reactive. There is no laboratory evidence of HCV infection. In most cases, no further action is required. However, if recent HCV exposure is suspected, a test for HCV RNA (test code 89711) is suggested. For additional information please refer to http://[employer]/faq/RJT74y0 (This link is being provided for informational/ educational purposes only.) HEPATITIS C ANTIBODY NON-REACT ATA NON-REACT ATA [facility] INDEX 0.05 <1.00 [facility] Comment: HCV antibody was non-reactive. There is no laboratory evidence of HCV infection. In most cases, no further action is required. However, if recent HCV exposure is suspected, a test for HCV RNA (test code 50089) is suggested. For additional information please refer to http://[employer]/faq/XSR12x3 (This link is being provided for informational/ educational purposes only.) HEPATITIS C ANTIBODY NON-REACT ATA NON-REACT ATA [facility] INDEX 0.05 <1.00 [facility] Comment: HCV antibody was non-reactive. There is no laboratory evidence of HCV infection. In most cases, no further action is required. However, if recent HCV exposure is suspected, a test for HCV RNA (test code 07485) is suggested. For additional information please refer to http://[employer]/faq/AST27f4 (This link is being provided for informational/ educational purposes only.) 09/25/2019 2:02 PM EDT us Shana James ANP HISTORICAL/NON ORDERABLE LABS Fi nal Result [facility] [address] * HIV 1/2 ANTIGEN/ANTIBODY,FOURTH GENERATION W/RFL (09/25/2019 2:02 PM EDT) HIV-1/2 ANTIGEN AND ANTIBODIES, 4TH GENERATION W/ REFLEX NON-REACT ATA NON-REACT ATA [facility] Comment: HIV-1 antigen and HIV-1/HIV-2 antibodies were not detected. There is no laboratory evidence of HIV infection. PLEASE NOTE: This information has been disclosed to you from records whose confidentiality may be protected by state law. If your state requires such protection, then the state law prohibits you from making any further disclosure of the information without the specific written consent of the person to whom it pertains, or as otherwise permitted by law. A general authorization for the release of medical or other information is NOT sufficient for this purpose. For additional information please refer to http://[employer]/faq/BZM617 (This link is being provided for informational/ educational purposes only.) The performance of this assay has not been clinically validated in patients less than 2 years old. HIV-1/2 ANTIGEN AND ANTIBODIES, 4TH GENERATION W/ REFLEX NON-REACT ATA NON-REACT ATA [facility] Comment: HIV-1 antigen and HIV-1/HIV-2 antibodies were not detected. There is no laboratory evidence of HIV infection. PLEASE NOTE: This information has been disclosed to you from records whose confidentiality may be protected by state law. If your state requires such protection, then the state law prohibits you from making any further disclosure of the information without the specific written consent of the person to whom it pertains, or as otherwise permitted by law. A general authorization for the release of medical or other information is NOT sufficient for this purpose. For additional information please refer to http://[employer]/faq/EQY457 (This link is being provided for informational/ educational purposes only.) The performance of this assay has not been clinically validated in patients less than 2 years old. HIV-1/2 ANTIGEN AND ANTIBODIES, 4TH GENERATION W/ REFLEX NON-REACT ATA NON-REACT ATA [facility] Comment: HIV-1 antigen and HIV-1/HIV-2 antibodies were not detected. There is no laboratory evidence of HIV infection. PLEASE NOTE: This information has been disclosed to you from records whose confidentiality may be protected by state law. If your state requires such protection, then the state law prohibits you from making any further disclosure of the information without the specific written consent of the person to whom it pertains, or as otherwise permitted by law. A general authorization for the release of medical or other information is NOT sufficient for this purpose. For additional information please refer to http://[employer]andel[employer] Project/faq/SHP039 (This link is being provided for informational/ educational purposes only.) The performance of this assay has not been clinically validated in patients less than 2 years old. 09/25/2019 2:02 PM EDT Shana RUSSELL LAB BLOOD ORDERABLES Final Resul t [facility] [address] from Last 3 Months or Most Recently Relevant to Health Maintenance Insurance [employer] Care Teams Autocad Technician Relationship Specialty Start Date End Date Shana James ANP [address] [place] [id number] PCP - General Family Medicine 09/25/19
[2024-09-22 10:13] LABS: Hematocrit 37.1 % (37.0-47.0); Hemoglobin 12.3 g/dl (12.0-16.0); Mean Corpuscular HGB Conc 33.2 g/dl (31.0-35.0); Mean Corpuscular Hemoglobin 27.1 pg (27.0-33.0); Mean Corpuscular Volume 81.7 fL (80.0-98.0); NRBC Abs Auto 0.000 X10*3/uL (0.0-0.012); NRBC Pct Auto 0.0 /100WBC (0.0-0.2); Platelet Count 317 X10*3/uL (160-400); Red Blood Count 4.54 X10*6/uL (4.20-5.50); White Blood Count 7.2 X10*3/uL (4.8-10.8)
[2024-09-23 06:13] LABS: Follicle Stimulating Hormone 3.9 mIU/mL
== END 2024-09-22 08:35 | disposition home or self-care (01) ==
LOC: HO.LAB 08:34
PROVIDERS: PCP Internal Medicine; Visit Provider Obstetrics & Gynecology
DX: Z01.419 Encounter for gynecological examination (general) (routine) without abnormal findings (principal); Z11.51 Encounter for screening for human papillomavirus (HPV); N93.9 Abnormal uterine and vaginal bleeding, unspecified; N88.9 Noninflammatory disorder of cervix uteri, unspecified; N84.1 Polyp of cervix uteri; N91.5 Oligomenorrhea, unspecified; Z98.51 Tubal ligation status
CPT/HCPCS: 36415; 57500; 81025; 83001; 83002; 84443; 84702; 85027; 87626; 88175; 88304; 88305; 99396